=== PATIENT | male | born 1950 | race Caucasian/White ===

== ENCOUNTER 2019-04-30 12:37 | Inpatient (IN) | payer MEDICARE, OTHER, SELFPAY ==
[2019-04-30] VITALS (7 sets, daily range): BP systolic 83–104; BP diastolic 51–76; PULSE 66–82; RESP 12–16; TEMP 36.6–37.2; O2SAT 95–98; BMI 27.3
[2019-04-30 13:05] LABS: Add Manual Diff / Slide Review NO; Basophils Absolute Auto 0 /uL (0-100); Basophils Percent Auto 0.2 % (0-2); Eosinophils Absolute Auto 0 /uL (0-450); Eosinophils Percent Auto 0.2 % (2-4); Hematocrit 47.3 % (41-53); Hemoglobin 16.6 g/dL (13.5-17.5); Lymphocytes Absolute Auto 800 /uL (1100-4500); Lymphocytes Percent Auto 11.1 % (25-40); Mean Corpuscular HGB Conc 35.2 % (30-36); Mean Corpuscular Hemoglobin 31.9 PG (26-34); Mean Corpuscular Volume 90.7 fL (80-100); Monocytes Absolute Auto 900 /uL (0-900); Monocytes Percent Auto 12.1 % (3-14); Neutrophils Absolute Auto 5800 /uL (1500-7000); Neutrophils Percent Auto 76.4 % (50-75); Platelet Count 197 X10^3/uL (150-400); Red Blood Cell Count 5.21 X10^6/uL (4.5-5.9); Red Cell Distribution Width 12.5 % (11.6-14.8); White Blood Cell Count 7.5 X10^3/uL (4.5-11.0)
[2019-04-30 13:17] LABS: Alanine Aminotransferase 26 IU/L (21-72); Albumin Globulin Ratio 1.4 (1.0-2.8); Alkaline Phosphatase 59 U/L (38-126); Aspartate Aminotransferase 31 IU/L (17-59); BUN Creatinine Ratio 14.8 (6-22); Bilirubin Total 1.2 mg/dL (0.2-1.3); Blood Urea Nitrogen 43 mg/dL (9-20); Calcium 9.7 mg/dL (8.4-10.2); Carbon Dioxide 26 mmol/L (22-32); Chloride 96 mmol/L (98-107); Estimated Glomerular Filt Rate 21.6 mL/min (>60); Globulin 3.6 g/dL (1.7-4.1); Glucose 107 mg/dL (80-110); HEMOLYSIS < 15 (0-50); Lipase 141 U/L (23-300); Potassium 4.1 mmol/L (3.4-5.1); Sodium 139 mmol/L (137-145); Total Protein 8.6 g/dL (6.3-8.2)
[2019-04-30 13:27] LABS: RBC Urine None Seen (0-5/HPF)
[2019-04-30 13:35] LABS: Amorphous Sediment Urine 1+; Squamous Epithelial Cell Urine 1-5 /HPF (0-5/HPF); WBC Urine 1-5/HPF (0-5/HPF)
[2019-04-30 13:36] LABS: Bacteria Urine Few (2-10); Culture Indicated Urine Specimen Cultured; Granular Casts Urine 5-10/LPF; Hyaline Casts Urine 1-5/LPF; Mucus Urine 2+ (Negative)
[2019-04-30] MEDS: SODIUM CHLORIDE 0.9% 1,000 ML 500 ML IV (13:44)
[2019-04-30] MEDS: ONDANSETRON 4 MG/2 ML INJ IV ×2 (13:48→15:26)
[2019-04-30] MEDS: SODIUM CHLORIDE 0.9% 1,000 ML 1000 ML IV (14:42)
[2019-04-30 14:52] LABS: Adenovirus F 40/41 Not Detected (Not Detect); Astrovirus Not Detected (Not Detect); Campylobacter Detected (Not Detect); Clostridium difficile toxin AB Not Detected (Not Detect); Cryptosporidium Not Detected (Not Detect); Cyclospora cayetanensis Not Detected (Not Detect); Entamoeba histolytica Not Detected (Not Detect); Enteroaggregative E.coli Not Detected (Not Detect); Enteropathogenic E.coli Not Detected (Not Detect); Enterotoxigenic E.coli It/st Not Detected (Not Detect); Giardia lamblia Not Detected (Not Detect); Norovirus GI/GII Not Detected (Not Detect); Plesiomonsa shigelloides Not Detected (Not Detect); Rotavirus A Not Detected (Not Detect); Salmonella Not Detected (Not Detect); Shiga-like toxin-prod E.coli Not Detected (Not Detect); Shigella/Enteroinvasive E.coli Not Detected (Not Detect); Vibrio Not Detected (Not Detect); Vibrio cholerae Not Detected (Not Detect); Yersinia enterocolitica Not Detected (Not Detect)
[2019-04-30 14:55] LABS: Sapovirus Not Detected (Not Detect)
--- NOTE | 2019-04-30 14:55 | PC.NURSE ---
[facility] Camp [facility]. [facility]
[2019-04-30 15:49] LABS: BUN Creatinine Ratio 17.8 (6-22); Blood Urea Nitrogen 41 mg/dL (9-20); Calcium 8.2 mg/dL (8.4-10.2); Carbon Dioxide 24 mmol/L (22-32); Chloride 105 mmol/L (98-107); Estimated Glomerular Filt Rate 28.2 mL/min (>60); Glucose 92 mg/dL (80-110); HEMOLYSIS < 15 (0-50); Potassium 4.4 mmol/L (3.4-5.1); Sodium 137 mmol/L (137-145)
[2019-04-30] MEDS: AZITHROMYCIN 250 MG TABLET 500 MG PO (16:03)
--- NOTE | 2019-04-30 16:38 | ED_ITS ---
HPI - Nausea/Vomiting/Diarrhea <Nate MASOOD Nuñez - Last Filed: 04/30/19 23:01> General Chief complaint: Nausea/Vomiting/Diarrhea Stated complaint: diarrhea x4 days, abdominal pain Time Seen by Provider: 04/30/19 12:41 Source: patient Mode of arrival: Ambulatory Limitations: no limitations History of Present Illness HPI Narrative: This is a 69-year-old gentleman, nonsmoker, who presents to ED with diarrhea for last 3-4 days after he was returning from a cruise in [place]. Patient reports there is no blood in his stool but diarrhea is very watery. He reports stomach constant cramping discomfort in mid abdomen and left lower quadrant with nausea, indigestion and chills. Patient reports he has loose stool from 10-12 times in 24 hour period. He reports weakness and lightheadedn ess. Patient denies fever or recent antibiotic medication use. Patient reports many people on cruise ship with coughing. According to spouse she also had mild flu-like symptoms while she was on a cruise. Patient also has remote history of ulcerative colitis and use to have colonoscopy every 2 years but last time he was told his clear from colitis. He reports current pain is different from his previous colitis pain. Related Data Home Medications Medication Instructions Recorded Confirmed atorvastatin 20 mg tablet 20 mg PO QPM 90 Days tab 06/19/18 04/30/19 fluticasone propionate 50 1 spray NASAL DIRECTED 90 Days 06/19/18 04/30/19 mcg/actuation nasal gram spray,suspension hydrochlorothiazide 25 mg tablet 12.5 mg PO DAILY 90 Days tab 06/19/18 04/30/19 lisinopril 20 mg tablet 10 mg PO DAILY 90 Days tab 06/19/18 04/30/19 metoprolol tartrate 25 mg tablet 12.5 mg PO BID 90 Days tab 06/19/18 04/30/19 CoQ-10 1 cap PO DAILY 04/30/19 04/30/19 Fish Oil 1 cap PO DAILY 04/30/19 04/30/19 Probiotic 1 cap PO DAILY 04/30/19 04/30/19 apple cider vinegar 1 cap PO DAILY 04/30/19 04/30/19 celecoxib [Celebrex] 200 mg PO QPM 04/30/19 04/30/19 finasteride 5 mg PO DAILY 04/30/19 04/30/19 multivitamin 1 tab PO DAILY 04/30/19 04/30/19 red yeast rice 1 cap PO DAILY 04/30/19 04/30/19 turmeric 2 tab PO QPM 04/30/19 04/30/19 Previous Rx's Medication Instructions Recorded ondansetron HCl [Zofran] 4 mg PO Q6H PRN #20 tab 05/01/19 Allergies Allergy/AdvReac Type Severity Reaction Status Date / Time No Known Allergies Allergy Verified 04/30/19 21:34 Review of Systems <MASOOD Wilcox - Last Filed: 04/30/19 23:01> Review of Systems Narrative: General: See HPI HEENT: Denies sinus pain, ear pain, sore throat, difficulty swallowing, dizziness. Respiratory: Denies dyspnea, cough, wheezing, hemoptysis, sputum. Cardiovascular: Denies chest pain, palpitations, orthopnea, edema. Gastrointestinal: See HPI : Denies dysuria, frequency, incontinence, hematuria, urinary retention. Musculoskeletal: Denies weakness, joint pain or bony pain. Skin: Denies rash, skin lesions, or other. Neurologic: Reports lightheadedness. Denies weakness, headache, numbness, change in speech, confusion, seizures, incoordination. Psychiatric: No concerning psychosocial issues. 12-point review of systems is negative except for those stated above. Patient History <MASOOD Wilcox - Last Filed: 04/30/19 23:01> Medical History (Updated 04/30/19 @ 23:01 by MASOOD Shannon) BPH (benign prostatic hyperplasia) (Chronic) Cervical spondylosis (Chronic) Cervical stenosis of spinal canal (Chronic) Hyperlipidemia (Chronic) Hypertension (Chronic) PAF (paroxysmal atrial fibrillation) (Chronic ~2014) Ulcerative colitis (Chronic) Family History (Updated 04/30/19 @ 22:56 by MASOOD Shannon) Mother Hypertension Father ESRD (end stage renal disease) Social History household members: spouse Smoking Status: Never smoker alcohol intake: current Exam <MASOOD Wilcox - Last Filed: 04/30/19 23:01> Narrative Exam Narrative: GEN: Alert, oriented x 3, well appearing and nourished, and in no acute distress. Head: Normal cephalic, atraumatic. No scalp or temporal tenderness, palpable mass or rash. EYES: Pupils are equal, round, and reactive to light and accommodation. Ext raocular muscles are intact bilaterally. There is no subconjunctival hemorrhage, exudate and sclera non-icteric. ENT: Bilateral auditory canals and tympanic membranes clear. Hearing grossly intact. Nose without bleeding, purulent discharge or deviation. Facial sinuses nontender to palpate. Mucous membrane moist, no mucosal lesion. Throat without erythema, tonsillar hypertrophy or exudate. Uvula in midline, airway patent. Neck: Trachea in midline. No JVD, non-tender without lymphadenopathy. No masses or thyroid megaly. Supple, non-tender and no meningeal signs. CARDIAC: Normal regular rate and rhythm without murmurs, gallops, or rubs. No chest wall tenderness. No peripheral edema, cyanosis or pallor. Capillary refill is less than 2 seconds. RESPIRATORY: Lungs are clear to auscultate bilaterally. No cough, wheezes, rales, or rhonchi. No stridor, respiratory distress, increase work of breathing, or accessary muscle used. ABD: Abdomen soft, tender to palpate in left lower quadrant and mid abdomen and non-distended. No guarding or rebound tenderness to palpate. Bowel sounds are normal in all 4 quadrants. There is no palpable masses or organomegaly. EXT: Full painless ROM of all extremities with no loss of sensation, strength, effusion or edema. SKIN: Warm, dry, normal color for patient. No erythema, lesions or rash over visible areas. BACK: Nontender without deformity or crepitance. No flank tenderness. NEUROLOGICAL: Alert and oriented to place, time and person. Sensation and motor function intact bilaterally. No facial droops, dysphasia. PSYCHIATRIC: Good judgement and reason, without hallucinations, abnormal affect or abnormal behaviors during the examination. Patient is not suicidal. Initial Vital Signs Initial Vital Signs: Vital Signs Temperature 97.9 F 04/30/19 12:48 Pulse Rate 70 04/30/19 12:48 Respiratory Rate 12 04/30/19 12:48 Blood Pressure 97/60 04/30/19 12:48 <Dwight Kirk, - Last Filed: 05/03/19 07:03> Initial Vital Signs Initial Vital Signs: Vital Signs Temperature 97.9 F 04/30/19 12:48 Pulse Rate 70 04/30/19 12:48 Respiratory Rate 12 04/30/19 12:48 Blood Pressure 97/60 04/30/19 12:48 Course <Nate Ojeda-Kemal [employer] DIRECTOR - Last Filed: 04/30/19 23:01> Orders Ordered: Discontinued Medications Azithromycin (Zithromax) 500 mg PO NOW ONE Stop: 04/30/19 15:22 Last Admin: 04/30/19 16:03 Dose: 500 mg Documented by: JAZMYN Dicyclomine HCl (Bentyl) 20 mg PO NOW ONE Stop: 04/30/19 16:48 Last Admin: 04/30/19 16:55 Dose: 20 mg Documented by: PRATIBHA Dicyclomine HCl (Bentyl) 10 mg PO Q6HR PRN PRN Reason: Abdominal Distention Last Admin: 05/01/19 00:24 Dose: 10 mg Documented by: MILIYLE Sodium Chloride (Normal Saline 0.9%) 1,000 mls @ 500 mls/hr IV BOLUS ONE Stop: 04/30/19 14:53 Last Infusion: 04/30/19 14:42 Dose: 0 mls/hr Documented by: Admin: 04/30/19 13:44 Dose: 500 mls/hr Documented by: JAZMYN Sodium Chloride (Normal Saline 0.9%) 1,000 mls @ 1,000 mls/hr IV BOLUS ONE Stop: 04/30/19 15:28 Last Infusion: 04/30/19 15:17 Dose: 0 mls/hr Documented by: Admin: 04/30/19 14:42 Dose: 1,000 mls/hr Documented by: SANJIVUDSON Sodium Chloride (Normal Saline 0.9%) 1,000 mls @ 125 mls/hr IV CONT NEY Last Admin: 04/30/19 18:20 Dose: 125 mls/hr Documented by: DOMENICAAZQUE Sodium Chloride (Normal Saline 0.9%) 1,000 mls @ 125 mls/hr IV CONT NEY Last Admin: 05/01/19 10:58 Dose: 125 mls/hr Documented by: Infusion: 05/01/19 09:53 Dose: 125 mls/hr Documented by: Admin: 05/01/19 01:53 Dose: 125 mls/hr Documented by: CHRISTOPHER Lactobacillus Acidophilus (Bacid Caplet) 1 each PO BIDWM NEY Last Admin: 05/01/19 09:49 Dose: 1 each Documented by: CHERY Magnesium Oxide (Mag Ox) 400 mg PO NOW ONE Stop: 05/01/19 01:55 Last Admin: 05/01/19 02:52 Dose: 400 mg Documented by: CHRISTOPHER Ondansetron HCl (Zofran) 4 mg IV NOW ONE Stop: 04/30/19 12:55 Last Admin: 04/30/19 13:48 Dose: 4 mg Documented by: JAZMYN Ondansetron HCl (Zofran) 4 mg IV NOW ONE Stop: 04/30/19 15:22 Last Admin: 04/30/19 15:26 Dose: 4 mg Documented by: JAZMYN Ondansetron HCl (Zofran Odt) 4 mg SL Q8HR PRN PRN Reason: Nausea Last Admin: 05/01/19 09:49 Dose: 4 mg Documented by: Admin: 05/01/19 00:24 Dose: 4 mg Documented by: CHRISTOPHER Prochlorperazine (Compazine) 5 mg PO Q8H PRN PRN Reason: Nausea Vital Signs Vital signs: Vital Signs - 8 hr 04/30/19 17:00 Pulse Rate 78 Respiratory Rate 16 Blood Pressure [Left Arm] 104/76 <Dwight Kirk, DO - Last Filed: 05/03/19 07:03> Orders Ordered: Discontinued Medications Azithromycin (Zithromax) 500 mg PO NOW ONE Stop: 04/30/19 15:22 Last Admin: 04/30/19 16:03 Dose: 500 mg Documented by: JAZMYN Dicyclomine HCl (Bentyl) 20 mg PO NOW ONE Stop: 04/30/19 16:48 Last Admin: 04/30/19 16:55 Dose: 20 mg Documented by: PRATIBHA Dicyclomine HCl (Bentyl) 10 mg PO Q6HR PRN PRN Reason: Abdominal Distention Last Admin: 05/01/19 00:24 Dose: 10 mg Documented by: CHRISTOPHER Sodium Chloride (Normal Saline 0.9%) 1,000 mls @ 500 mls/hr IV BOLUS ONE Stop: 04/30/19 14:53 Last Infusion: 04/30/19 14:42 Dose: 0 mls/hr Documented by: Admin: 04/30/19 13:44 Dose: 500 mls/hr Documented by: JAZMYN Sodium Chloride (Normal Saline 0.9%) 1,000 mls @ 1,000 mls/hr IV BOLUS ONE Stop: 04/30/19 15:28 Last Infusion: 04/30/19 15:17 Dose: 0 mls/hr Documented by: Admin: 04/30/19 14:42 Dose: 1,000 mls/hr Documented by: JAZMYN Sodium Chloride (Normal Saline 0.9%) 1,000 mls @ 125 mls/hr IV CONT NEY Last Admin: 04/30/19 18:20 Dose: 125 mls/hr Documented by: DAVID Sodium Chloride (Normal Saline 0.9%) 1,000 mls @ 125 mls/hr IV CONT NEY Last Admin: 05/01/19 10:58 Dose: 125 mls/hr Documented by: Infusion: 05/01/19 09:53 Dose: 125 mls/hr Documented by: Admin: 05/01/19 01:53 Dose: 125 mls/hr Documented by: CHRISTOPHER Lactobacillus Acidophilus (Bacid Caplet) 1 each PO BIDWM NEY Last Admin: 05/01/19 09:49 Dose: 1 each Documented by: CHERY Magnesium Oxide (Mag Ox) 400 mg PO NOW ONE Stop: 05/01/19 01:55 Last Admin: 05/01/19 02:52 Dose: 400 mg Documented by: CHRISTOPHER Ondansetron HCl (Zofran) 4 mg IV NOW ONE Stop: 04/30/19 12:55 Last Admin: 04/30/19 13:48 Dose: 4 mg Documented by: JAZMYN Ondansetron HCl (Zofran) 4 mg IV NOW ONE Stop: 04/30/19 15:22 Last Admin: 04/30/19 15:26 Dose: 4 mg Documented by: JAZMYN Ondansetron HCl (Zofran Odt) 4 mg SL Q8HR PRN PRN Reason: Nausea Last Admin: 05/01/19 09:49 Dose: 4 mg Documented by: Admin: 05/01/19 00:24 Dose: 4 mg Documented by: CHRISTOPHER Prochlorperazine (Compazine) 5 mg PO Q8H PRN PRN Reason: Nausea Vital Signs Vital signs: Vital Signs - 8 hr 04/30/19 17:00 Pulse Rate 78 Respiratory Rate 16 Blood Pressure [Left Arm] 104/76 MDM - Nausea/Vomiting/Diarrhea <Nate MASOOD Nuñez - Last Filed: 04/30/19 23:01> Differential Diagnosis Differential diagnosis: Likely gastroenteritis and other (Infectious diarrhea, colitis, dehydration, hypokalemia) Medical Records Attestation: I reviewed the patient's medical records. Lab Data Attestation: I reviewed the patient's lab results. Result diagrams: 04/30/19 12:50 05/01/19 08:00 Labs: Lab Results 04/30/19 04/30/19 04/30/19 Range/Units 12:50 12:50 13:11 WBC 7.5 (4.5-11.0) X10^3/uL RBC 5.21 (4.5-5.9) X10^6/uL Hgb 16.6 (13.5-17.5) g/dL Hct 47.3 (41-53) % MCV 90.7 (80-100) fL MCH 31.9 (26-34) PG MCHC 35.2 (30-36) % RDW 12.5 (11.6-14.8) % Plt Count 197 (150-400) X10^3/uL Neut % (Auto) 76.4 H (50-75) % Lymph % (Auto) 11.1 L (25-40) % [place] % (Auto) 12.1 (3-14) % Eos % (Auto) 0.2 L (2-4) % Baso % (Auto) 0.2 (0-2) % Neut # (Auto) 5800 (9338-7033) /uL Lymph # (Auto) 800 L (9952-2703) /uL [place] # (Auto) 900 (0-900) /uL Eos # (Auto) 0 (0-450) /uL Baso # (Auto) 0 (0-100) /uL Sodium 139 (137-145) mmol/L Potassium 4.1 (3.4-5.1) mmol/L Chloride 96 L (98-107) mmol/L Carbon Dioxide 26 (22-32) mmol/L BUN 43 H (9-20) mg/dL Creatinine 2.90 H (0.66-1.25) mg/dL Estimated GFR 21.6 L (>60) mL/min BUN/Creatinine Ratio 14.8 (6-22) Glucose 107 (80-110) mg/dL Calcium 9.7 (8.4-10.2) mg/dL Total Bilirubin 1.2 (0.2-1.3) mg/dL AST 31 (17-59) IU/L ALT 26 (21-72) IU/L Alkaline Phosphatase 59 (38-126) U/L Total Protein 8.6 H (6.3-8.2) g/dL Albumin 5.0 (3.5-5.0) g/dL Globulin 3.6 (1.7-4.1) g/dL Albumin/Globulin Ratio 1.4 (1.0-2.8) Lipase 141 (23-300) U/L Urine RBC (0-5/HPF) Urine WBC (0-5/HPF) Ur Squamous Epith Cells (0-5/HPF) Amorphous Sediment Urine Bacteria (None) Hyaline Casts (None) Granular Casts (None) Urine Mucus (Negative) Ur Culture Indicated? Stl C. cayetanensis PCR Not detected (Not Detect) Stool Rotavirus (PCR) Not detected (Not Detect) Stool Adenovirus (PCR) Not detected (Not Detect) Stool Astrovirus (PCR) Not detected (Not Detect) Stool Cryptosporidium PCR Not detected (Not Detect) Stl E.coli Shiga Tox PCR Not detected (Not Detect) St Sh/Enteroin Ecoli PCR Not detected (Not Detect) Stool E coli O157 PCR Not Reportable Stl Enterotoxigenic E PCR Not detected (Not Detect) Stool EPEC (PCR) Not detected (Not Detect) Stl E. histolytica PCR Not detected (Not Detect) Stool Giardia Lamblia PCR Not detected (Not Detect) Stool Sapovirus (PCR) Not detected (Not Detect) Stl P. shigelloides PCR Not detected (Not Detect) St Y.enterocolitica PCR Not detected (Not Detect) Stool Vibrio (PCR) Not detected (Not Detect) Stl Vibrio cholerae PCR Not detected (Not Detect) Stl Enteroaggr Ecoli PCR Not detected (Not Detect) Stl Norovirus GI/GII PCR Not detected (Not Detect) Campylobacter (PCR) Detected H (Not Detect) C. difficile Tox (PCR) Not detected (Not Detect) Salmonella (PCR) Not detected (Not Detect) 04/30/19 04/30/19 Range/Units 13:20 15:22 WBC (4.5-11.0) X10^3/uL RBC (4.5-5.9) X10^6/uL Hgb (13.5-17.5) g/dL Hct (41-53) % MCV (80-100) fL MCH (26-34) PG MCHC (30-36) % RDW (11.6-14.8) % Plt Count (150-400) X10^3/uL Neut % (Auto) (50-75) % Lymph % (Auto) (25-40) % [place] % (Auto) (3-14) % Eos % (Auto) (2-4) % Baso % (Auto) (0-2) % Neut # (Auto) (5931-6760) /uL Lymph # (Auto) (5664-2223) /uL [place] # (Auto) (0-900) /uL Eos # (Auto) (0-450) /uL Baso # (Auto) (0-100) /uL Sodium 137 (137-145) mmol/L Potassium 4.4 (3.4-5.1) mmol/L Chloride 105 (98-107) mmol/L Carbon Dioxide 24 (22-32) mmol/L BUN 41 H (9-20) mg/dL Creatinine 2.30 H (0.66-1.25) mg/dL Estimated GFR 28.2 L (>60) mL/min BUN/Creatinine Ratio 17.8 (6-22) Glucose 92 (80-110) mg/dL Calcium 8.2 L (8.4-10.2) mg/dL Total Bilirubin (0.2-1.3) mg/dL AST (17-59) IU/L ALT (21-72) IU/L Alkaline Phosphatase (38-126) U/L Total Protein (6.3-8.2) g/dL Albumin (3.5-5.0) g/dL Globulin (1.7-4.1) g/dL Albumin/Globulin Ratio (1.0-2.8) Lipase (23-300) U/L Urine RBC None seen (0-5/HPF) Urine WBC 1-5/hpf (0-5/HPF) Ur Squamous Epith Cells 1-5 /hpf (0-5/HPF) Amorphous Sediment 1+ Urine Bacteria Few (2-10) H (None) Hyaline Casts 1-5/lpf (None) Granular Casts 5-10/lpf (None) Urine Mucus 2+ H (Negative) Ur Culture Indicated? Specimen cultured Stl C. cayetanensis PCR (Not Detect) Stool Rotavirus (PCR) (Not Detect) Stool Adenovirus (PCR) (Not Detect) Stool Astrovirus (PCR) (Not Detect) Stool Cryptosporidium PCR (Not Detect) Stl E.coli Shiga Tox PCR (Not Detect) St Sh/Enteroin Ecoli PCR (Not Detect) Stool E coli O157 PCR Stl Enterotoxigenic E PCR (Not Detect) Stool EPEC (PCR) (Not Detect) Stl E. histolytica PCR (Not Detect) Stool Giardia Lamblia PCR (Not Detect) Stool Sapovirus (PCR) (Not Detect) Stl P. shigelloides PCR (Not Detect) St Y.enterocolitica PCR (Not Detect) Stool Vibrio (PCR) (Not Detect) Stl Vibrio cholerae PCR (Not Detect) Stl Enteroaggr Ecoli PCR (Not Detect) Stl Norovirus GI/GII PCR (Not Detect) Campylobacter (PCR) (Not Detect) C. difficile Tox (PCR) (Not Detect) Salmonella (PCR) (Not Detect) Urine Dip Bedside Urine Glucose Negative Bedside Urine Bilirubin + 1 Bedside Urine Ketone +/- 5 Urine Specific [place] 1.030 Bedside Urine Occult Blood - Negative Bedside Urine pH 5.0 Bedside Urine Protein + 30 Bedside Urine Urobilinogen +/- 1mg Bedside Urine Nitrite - Negative Bedside Urine Leukocytes +/- 15 Esterase MDM Narrative Medical decision making narrative: 69-year-old gentleman who presents to ED with 3-4 days of multiple episodes of nonbloody, watery stool after he had returned from a cruise in [place] with constant low abdominal cramping pain, nausea and chills. Patient denies recent treatment with antibiotic medication. Patient states many people were cough and sniffles on a cruise ship and has nonproductive cough. Patient has history of ulcerative colitis which he can no longer has per last colonoscopy test and no further Q 2 year colonoscopy was suggested per his GI specialist. Patient had symptomatic hypotensive when he came in to ED with systolic blood pressure in mid 90s with normal heart rates, however patient currently takes metoprolol for AFib. Abdominal physical exam showed soft, nondistended, tender to palpate in mid and left side abdomen. Lung sounds were CTAB. Lab test shows unremarkable WBC. Kidney function test elev ated with creatinine level of 2.9 with GFR of 21.6 and BUN of 43. The patient had not report any kidney problems in the past. Given patient's history, this may due to patient's acute dehydration from multiple episodes of diarrhea. Patient was hydrated with 2 L of normal saline and Zofran and repeat kidney function test was obtained with somewhat improved creatinine as 2.3 and GFR of 28.2 with BUN of 41. Stool panel was positive for campylocater PCR. Patient was treated with azithromycin 500 mg p.o. and Bentyl for stomach discomfort. Patient was able to tolerate ice chips. Requested patient's medical record from primary care physician's office and patient's baseline kidney function in showed as creatinine of 0.99 with >60 GFR and normal BUN. It appears to be patient has acute kidney injury due to severe dehydration with pre-renal etiology and Dr Hopkins was contacted for the admission for gentle hydration and trending of his kidney function test. kindly accepted patient's care. Patient's urine test shows negative leuks and nitrites with 2-10 of urine bacteria and urine is being cultured at this time. Patient was not addressed for this and will wait for urine culture result to treat the patient. Findings were shared with patient and spouse and treatment plan was discussed and verbalized understanding. <Dwight Kirk, DO - Last Filed: 05/03/19 07:03> Lab Data Labs: Lab Results 04/30/19 04/30/19 04/30/19 Range/Units 12:50 12:50 13:11 WBC 7.5 (4.5-11.0) X10^3/uL RBC 5.21 (4.5-5.9) X10^6/uL Hgb 16.6 (13.5-17.5) g/dL Hct 47.3 (41-53) % MCV 90.7 (80-100) fL MCH 31.9 (26-34) PG MCHC 35.2 (30-36) % RDW 12.5 (11.6-14.8) % Plt Count 197 (150-400) X10^3/uL Neut % (Auto) 76.4 H (50-75) % Lymph % (Auto) 11.1 L (25-40) % [place] % (Auto) 12.1 (3-14) % Eos % (Auto) 0.2 L (2-4) % Baso % (Auto) 0.2 (0-2) % Neut # (Auto) 5800 (8676-0355) /uL Lymph # (Auto) 800 L (7581-7576) /uL [place] # (Auto) 900 (0-900) /uL Eos # (Auto) 0 (0-450) /uL Baso # (Auto) 0 (0-100) /uL Sodium 139 (137-145) mmol/L Potassium 4.1 (3.4-5.1) mmol/L Chloride 96 L (98-107) mmol/L Carbon Dioxide 26 (22-32) mmol/L BUN 43 H (9-20) mg/dL Creatinine 2.90 H (0.66-1.25) mg/dL Estimated GFR 21.6 L (>60) mL/min BUN/Creatinine Ratio 14.8 (6-22) Glucose 107 (80-110) mg/dL Calcium 9.7 (8.4-10.2) mg/dL Total Bilirubin 1.2 (0.2-1.3) mg/dL AST 31 (17-59) IU/L ALT 26 (21-72) IU/L Alkaline Phosphatase 59 (38-126) U/L Total Protein 8.6 H (6.3-8.2) g/dL Albumin 5.0 (3.5-5.0) g/dL Globulin 3.6 (1.7-4.1) g/dL Albumin/Globulin Ratio 1.4 (1.0-2.8) Lipase 141 (23-300) U/L Urine RBC (0-5/HPF) Urine WBC (0-5/HPF) Ur Squamous Epith Cells (0-5/HPF) Amorphous Sediment Urine Bacteria (None) Hyaline Casts (None) Granular Casts (None) Urine Mucus (Negative) Ur Culture Indicated? Stl C. cayetanensis PCR Not detected (Not Detect) Stool Rotavirus (PCR) Not detected (Not Detect) Stool Adenovirus (PCR) Not detected (Not Detect) Stool Astrovirus (PCR) Not detected (Not Detect) Stool Cryptosporidium PCR Not detected (Not Detect) Stl E.coli Shiga Tox PCR Not detected (Not Detect) St Sh/Enteroin Ecoli PCR Not detected (Not Detect) Stool E coli O157 PCR Not Reportable Stl Enterotoxigenic E PCR Not detected (Not Detect) Stool EPEC (PCR) Not detected (Not Detect) Stl E. histolytica PCR Not detected (Not Detect) Stool Giardia Lamblia PCR Not detected (Not Detect) Stool Sapovirus (PCR) Not detected (Not Detect) Stl P. shigelloides PCR Not detected (Not Detect) St Y.enterocolitica PCR Not detected (Not Detect) Stool Vibrio (PCR) Not detected (Not Detect) Stl Vibrio cholerae PCR Not detected (Not Detect) Stl Enteroaggr Ecoli PCR Not detected (Not Detect) Stl Norovirus GI/GII PCR Not detected (Not Detect) Campylobacter (PCR) Detected H (Not Detect) C. difficile Tox (PCR) Not detected (Not Detect) Salmonella (PCR) Not detected (Not Detect) 04/30/19 04/30/19 Range/Units 13:20 15:22 WBC (4.5-11.0) X10^3/uL RBC (4.5-5.9) X10^6/uL Hgb (13.5-17.5) g/dL Hct (41-53) % MCV (80-100) fL MCH (26-34) PG MCHC (30-36) % RDW (11.6-14.8) % Plt Count (150-400) X10^3/uL Neut % (Auto) (50-75) % Lymph % (Auto) (25-40) % [place] % (Auto) (3-14) % Eos % (Auto) (2-4) % Baso % (Auto) (0-2) % Neut # (Auto) (1627-5874) /uL Lymph # (Auto) (2525-5970) /uL [place] # (Auto) (0-900) /uL Eos # (Auto) (0-450) /uL Baso # (Auto) (0-100) /uL Sodium 137 (137-145) mmol/L Potassium 4.4 (3.4-5.1) mmol/L Chloride 105 (98-107) mmol/L Carbon Dioxide 24 (22-32) mmol/L BUN 41 H (9-20) mg/dL Creatinine 2.30 H (0.66-1.25) mg/dL Estimated GFR 28.2 L (>60) mL/min BUN/Creatinine Ratio 17.8 (6-22) Glucose 92 (80-110) mg/dL Calcium 8.2 L (8.4-10.2) mg/dL Total Bilirubin (0.2-1.3) mg/dL AST (17-59) IU/L ALT (21-72) IU/L Alkaline Phosphatase (38-126) U/L Total Protein (6.3-8.2) g/dL Albumin (3.5-5.0) g/dL Globulin (1.7-4.1) g/dL Albumin/Globulin Ratio (1.0-2.8) Lipase (23-300) U/L Urine RBC None seen (0-5/HPF) Urine WBC 1-5/hpf (0-5/HPF) Ur Squamous Epith Cells 1-5 /hpf (0-5/HPF) Amorphous Sediment 1+ Urine Bacteria Few (2-10) H (None) Hyaline Casts 1-5/lpf (None) Granular Casts 5-10/lpf (None) Urine Mucus 2+ H (Negative) Ur Culture Indicated? Specimen cultured Stl C. cayetanensis PCR (Not Detect) Stool Rotavirus (PCR) (Not Detect) Stool Adenovirus (PCR) (Not Detect) Stool Astrovirus (PCR) (Not Detect) Stool Cryptosporidium PCR (Not Detect) Stl E.coli Shiga Tox PCR (Not Detect) St Sh/Enteroin Ecoli PCR (Not Detect) Stool E coli O157 PCR Stl Enterotoxigenic E PCR (Not Detect) Stool EPEC (PCR) (Not Detect) Stl E. histolytica PCR (Not Detect) Stool Giardia Lamblia PCR (Not Detect) Stool Sapovirus (PCR) (Not Detect) Stl P. shigelloides PCR (Not Detect) St Y.enterocolitica PCR (Not Detect) Stool Vibrio (PCR) (Not Detect) Stl Vibrio cholerae PCR (Not Detect) Stl Enteroaggr Ecoli PCR (Not Detect) Stl Norovirus GI/GII PCR (Not Detect) Campylobacter (PCR) (Not Detect) C. difficile Tox (PCR) (Not Detect) Salmonella (PCR) (Not Detect) Urine Dip Bedside Urine Glucose Negative Bedside Urine Bilirubin + 1 Bedside Urine Ketone +/- 5 Urine Specific [place] 1.030 Bedside Urine Occult Blood - Negative Bedside Urine pH 5.0 Bedside Urine Protein + 30 Bedside Urine Urobilinogen +/- 1mg Bedside Urine Nitrite - Negative Bedside Urine Leukocytes +/- 15 Esterase Discharge Plan Departure Patient Disposition: Admitted As Inpatient Clinical Impression: Acute renal injury due to hypovolemia Discharge Date/Time: 04/30/19 18:02 Admit Date/Time: 04/30/19 17:47 Admit Provider: Lolis Hopkins <Dwight Kirk DO - Last Filed: 05/03/19 07:03> Sign Out Provider Sign Out Attestation: I was available for consultation during this patient's emergency department visit. This chart is signed by myself for administrative purposes only. I did not have direct contact with this patient during this visit. They were seen independently by the APC.
[2019-04-30] MEDS: DICYCLOMINE 10 MG CAPSULE 20 MG PO (16:55)
[2019-04-30] MEDS: SODIUM CHLORIDE 0.9% 1,000 ML 125 ML IV (18:20)
--- NOTE | 2019-04-30 20:38 | PM.HP.1 ---
History of Present Illness History of Present Illness Date Patient Seen: 04/30/19 Time Patient Seen: 20:39 Chief complaint: diarrhea x4 days, abdominal pain Narrative: The patient is a 69-year-old male with PMH HTN, PAF, HLD, BPH, ulcerative colitis, BPH, and cervical stenosis. Patient presented to the ED on 04/30/2019 out of concern for diarrhea and abdominal pain. Symptom onset was sudden, initially noted on 04/27/2019. Reports associated upper respiratory symptoms, malaise, dizziness with position change, and diminished appetite. Reports 10-14 episodes of watery diarrhea since onset of symptoms, denies rectal bleeding, melena, or hematochezia. Intermittent episodes of chills, but no fever. Denies joint pain, myalgia, and myopathy. Abdominal discomfort in the form of cramping and localized to lower quadrants of the abdomen. Patient recently returned from a cruise. Underlying history of ulcerative colitis. Patient follows up routinely and has colonoscopy every 2 years. Chronic disease has been stable. Current abdominal discomfort is different from discomfort experienced during an ulcerative colitis flare. Also has underlying history of paroxysmal atrial fibrillation. Not chronically anticoagulated. On metoprolol 12.5 mg b.i.d. for rate control. Known to be on HCTZ and lisinopril for BP control. Takes celecoxib for chronic neck pain. Denies additional use of NSAIDs. ED presentation & workup VS, 04/30 at 1751. T 97.9? F BP 97/60 mmHg HR 70 RR 12 SpO2 95% on RA Labs, 04/30 at WBC 7.5 HGB 16.6 HCT 47.3 PLT 197 Treatment/interventions received in ED - 500 ml NS bolus (1344) - ondansetron 4 mg IV (1348) - 1000 ml NS bolus (1442) - ondansetron 4 mg IV (1526) - azithromycin 500 mg PO (1603) - Dicyclomine 20 mg PO (1655) Patient History Medical History (Updated 04/30/19 @ 23:01 by MASOOD Shannon) BPH (benign prostatic hyperplasia) (Chronic) Cervical spondylosis (Chronic) Cervical stenosis of spinal canal (Chronic) Hyperlipidemia (Chronic) Hypertension (Chronic) PAF (paroxysmal atrial fibrillation) (Chronic ~2013) Ulcerative colitis (Chronic) Family & Social History Family History (Updated 04/30/19 @ 22:56 by MASOOD Shannon) Mother Hypertension Father ESRD (end stage renal disease) Social History: household members Spouse. . Prior Living Arrangements House Safety & Behavioral: Feels Safe in Current Yes Environment Been Physically Hurt or No Threatened By a Person Suicidal Ideation Description None Suicide Plan Description No Plan Tobacco & Substance use: Smoking Status Never smoker alcohol intake current alcohol intake frequency 0-2 drinks per day Substance Use Type does not use Meds Home Medications and Allergies Home Medications Medication Instructions Recorded Confirmed Type atorvastatin 20 mg tablet 20 mg PO QPM 90 Days tab 06/19/18 04/30/19 History fluticasone propionate 50 1 spray NASAL DIRECTED 90 Days 06/19/18 04/30/19 History mcg/actuation nasal gram spray,suspension hydrochlorothiazide 25 mg tablet 12.5 mg PO DAILY 90 Days tab 06/19/18 04/30/19 History lisinopril 20 mg tablet 10 mg PO DAILY 90 Days tab 06/19/18 04/30/19 History metoprolol tartrate 25 mg tablet 12.5 mg PO BID 90 Days tab 06/19/18 04/30/19 History CoQ-10 1 cap PO DAILY 04/30/19 04/30/19 History Fish Oil 1 cap PO DAILY 04/30/19 04/30/19 History Probiotic 1 cap PO DAILY 04/30/19 04/30/19 History apple cider vinegar 1 cap PO DAILY 04/30/19 04/30/19 History celecoxib [Celebrex] 200 mg PO QPM 04/30/19 04/30/19 History finasteride 5 mg PO DAILY 04/30/19 04/30/19 History multivitamin 1 tab PO DAILY 04/30/19 04/30/19 History red yeast rice 1 cap PO DAILY 04/30/19 04/30/19 History turmeric 2 tab PO QPM 04/30/19 04/30/19 History ondansetron HCl [Zofran] 4 mg PO Q6H PRN #20 tab 05/01/19 Rx Allergies Allergy/AdvReac Type Severity Reaction Status Date / Time No Known Allergies Allergy Verified 04/30/19 21:34 Review of Systems Review of Systems ROS Unobtainable: All systems reviewed & are unremarkable except as noted in HPI and below Exam Vital Signs (past 8 hours): - 04/30/19 12:48 04/30/19 13:30 04/30/19 14:00 Temperature 97.9 F Pulse Rate 70 71 66 Respiratory Rate 12 Blood Pressure 97/60 Blood Pressure [Left Arm] 83/51 L 95/65 Pulse Oximetry 95 98 04/30/19 17:00 04/30/19 17:51 04/30/19 18:00 Temperature 99 F Pulse Rate 78 80 77 Respiratory Rate 16 14 16 Blood Pressure 103/57 L Blood Pressure [Left Arm] 104/76 100/63 Pulse Oximetry 95 98 Oxygen Delivery Method Room Air Oxygen Flow Rate 0 Narrative Exam Narrative: Constitutional: NAD Neurologic: AOx3, no focal neurological deficits Head: NC, AT Eyes: PERRL, EOMI, Ears: external ears normal, no otorrhea Nose: external nose normal, no rhinorrhea or epistaxis Throat: MMM, oropharynx w/o exudate Neck: no masses, lymphadenopathy, or JVD Chest / Respiratory: equal chest rise, unlabored respiratory effort, no dyspnea or tachypnea at rest diminished breath sounds, no crackles or wheezing, on room air Heart / CV: S1S2, no murmur Abdomen / GI: round, moderately distended, soft, RLQ and LLQ tenderness on palpation (no guarding) : no suprapubic tenderness, no CVA Peripheral / Vascular: warm to touch, DP and PT pulses palpable, no edema Musc: full ROM of upper and lower extremities, adequate muscle tone and bulk Skin: no ecchymosis or suspicious lesions / ulcers Objective Labs Result Diagrams: 04/30/19 12:50 05/01/19 08:00 Labs: Laboratory Results - last 24 hr 04/30/19 04/30/19 04/30/19 12:50 12:50 13:11 WBC 7.5 RBC 5.21 Hgb 16.6 Hct 47.3 MCV 90.7 MCH 31.9 MCHC 35.2 RDW 12.5 Plt Count 197 Neut % (Auto) 76.4 H Lymph % (Auto) 11.1 L [place] % (Auto) 12.1 Eos % (Auto) 0.2 L Baso % (Auto) 0.2 Neut # (Auto) 5800 Lymph # (Auto) 800 L [place] # (Auto) 900 Eos # (Auto) 0 Baso # (Auto) 0 Sodium 139 Potassium 4.1 Chloride 96 L Carbon Dioxide 26 BUN 43 H Creatinine 2.90 H Estimated GFR 21.6 L BUN/Creatinine Ratio 14.8 Glucose 107 Calcium 9.7 Total Bilirubin 1.2 AST 31 ALT 26 Alkaline Phosphatase 59 Total Protein 8.6 H Albumin 5.0 Globulin 3.6 Albumin/Globulin Ratio 1.4 Lipase 141 Urine RBC Urine WBC Ur Squamous Epith Cells Amorphous Sediment Urine Bacteria Hyaline Casts Granular Casts Urine Mucus Ur Culture Indicated? Stl C. cayetanensis PCR Not detected Stool Rotavirus (PCR) Not detected Stool Adenovirus (PCR) Not detected Stool Astrovirus (PCR) Not detected Stool Cryptosporidium PCR Not detected Stl E.coli Shiga Tox PCR Not detected St Sh/Enteroin Ecoli PCR Not detected Stool E coli O157 PCR Not Reportable Stl Enterotoxigenic E PCR Not detected Stool EPEC (PCR) Not detected Stl E. histolytica PCR Not detected Stool Giardia Lamblia PCR Not detected Stool Sapovirus (PCR) Not detected Stl P. shigelloides PCR Not detected St Y.enterocolitica PCR Not detected Stool Vibrio (PCR) Not detected Stl Vibrio cholerae PCR Not detected Stl Enteroaggr Ecoli PCR Not detected Stl Norovirus GI/GII PCR Not detected Campylobacter (PCR) Detected H C. difficile Tox (PCR) Not detected Salmonella (PCR) Not detected 04/30/19 04/30/19 13:20 15:22 WBC RBC Hgb Hct MCV MCH MCHC RDW Plt Count Neut % (Auto) Lymph % (Auto) [place] % (Auto) Eos % (Auto) Baso % (Auto) Neut # (Auto) Lymph # (Auto) [place] # (Auto) Eos # (Auto) Baso # (Auto) Sodium 137 Potassium 4.4 Chloride 105 Carbon Dioxide 24 BUN 41 H Creatinine 2.30 H Estimated GFR 28.2 L BUN/Creatinine Ratio 17.8 Glucose 92 Calcium 8.2 L Total Bilirubin AST ALT Alkaline Phosphatase Total Protein Albumin Globulin Albumin/Globulin Ratio Lipase Urine RBC None seen Urine WBC 1-5/hpf Ur Squamous Epith Cells 1-5 /hpf Amorphous Sediment 1+ Urine Bacteria Few (2-10) H Hyaline Casts 1-5/lpf Granular Casts 5-10/lpf Urine Mucus 2+ H Ur Culture Indicated? Specimen cultured Stl C. cayetanensis PCR Stool Rotavirus (PCR) Stool Adenovirus (PCR) Stool Astrovirus (PCR) Stool Cryptosporidium PCR Stl E.coli Shiga Tox PCR St Sh/Enteroin Ecoli PCR Stool E coli O157 PCR Stl Enterotoxigenic E PCR Stool EPEC (PCR) Stl E. histolytica PCR Stool Giardia Lamblia PCR Stool Sapovirus (PCR) Stl P. shigelloides PCR St Y.enterocolitica PCR Stool Vibrio (PCR) Stl Vibrio cholerae PCR Stl Enteroaggr Ecoli PCR Stl Norovirus GI/GII PCR Campylobacter (PCR) C. difficile Tox (PCR) Salmonella (PCR) Assessment & Plan Assessment & Plan narrative: Patient is being admitted under observation status. Campylobacter gastrointestinal tract infection, acute, present on admission, active - Campylobacter antigen positive on GI panel - No fever or bloody stools - Typically this type of infection is self-limited. Supportive care, at this time antimicrobial therapy is not needed or recommended. - Rehydration w/ IVF, NS @ 125 ml/hr - Monitor and correct electrolyte deficiencies - Clear liquid diet, re-evaluate in am, may advance if GI symptoms improving - Probiotic 1 tab po BID, may help to reduce severity and duration of symptoms - Bentyl 10 mg Q6H prn for abdominal cramping, IBS symptoms - Monitor for severe disease (RF: age) and potential complications of reactive arthritis and GBS - Follow-up tests are not needed once diarrhea has resolved. Patient's may experience pursue symptoms of IBS post resolution of an infection, if this occurs it is not considered an abnormal sequela. - Placed in contact isolation Acute kidney injury, present on admission, active - sCr 2.9 on presentation, improving with hydration (repeat sCr 2.3) - baseline renal function is not known - continue IV fluids - hold nephrotoxin agents (specifically will hold INSTRUMENT LENS GRINDER meds, HCTZ, lisinopril, and celecoxib) Nausea and diarrhea - Anti-emetics, zofran odt 4 mg Q8H prn and compazine 5 mg PO Q8H prn Upper respiratory symptoms, acute, present on admission, active - Check respiratory viral panel Paroxysmal atrial fibrillation, chronic condition, present on admission, stable - EKG, Tele monitoring - Not on chronic anticoagulation - INSTRUMENT LENS GRINDER on metoprolol tartrate 12.5 mg b.i.d. for rate control; hold BB tonight, in lieu of hypotension, re-evaluate in am, will monitor patients cardiac status closely - BMP, Mg at midnight, given frequent diarrhea - Monitor and replete electrolytes accordingly Hyperlipidemia, chronic condition, present on admission, stable -INSTRUMENT LENS GRINDER on a statin and fish oil, hold with acute malaise, mayalgia, and GI pathology. Resume with symptom resolution. Cervical pain, chronic condition, present on admission, stable - INSTRUMENT LENS GRINDER on celecoxib, will hold in lieu of MARY Full code. Designates spouse as a surrogate decision maker. VTE prophylaxis with SCDs. Home medications reviewed and reconciled accordingly
[2019-05-01] VITALS: BP 104/61; PULSE 84; RESP 18; TEMP 36.8; O2SAT 96
[2019-05-01] MEDS: ONDANSETRON 4 MG ODT SL ×2 (00:24→09:49)
[2019-05-01] MEDS: DICYCLOMINE 10 MG CAPSULE PO (00:24)
[2019-05-01 00:57] LABS: Blood Urea Nitrogen 32 mg/dL (9-20); Calcium 8.7 mg/dL (8.4-10.2); Carbon Dioxide 25 mmol/L (22-32); Chloride 105 mmol/L (98-107); Estimated Glomerular Filt Rate 42.8 mL/min (>60); Glucose 87 mg/dL (80-110); HEMOLYSIS < 15 (0-50); Magnesium 1.8 mg/dL (1.6-2.3); Sodium 138 mmol/L (137-145)
[2019-05-01] MEDS: SODIUM CHLORIDE 0.9% 1,000 ML 125 ML IV ×2 (01:53→10:58)
[2019-05-01 02:02] LABS: Adenovirus Not Detected (Not Detect); Coronavirus 229E Not Detected (Not Detect); Coronavirus HKU1 Not Detected (Not Detect); Coronavirus NL 63 Not Detected (Not Detect)
[2019-05-01 02:03] LABS: Bordetella pertussis Not Detected (Not Detect); Chlamydophila pneumoniae Not Detected (Not Detect); Coronavirus OC43 Not Detected (Not Detect); Human Metapneumovirus Not Detected (Not Detect); Human Rhinovirus/Enterovirus Not Detected (Not Detect); Influenza A Not Detected (Not Detect); Influenza B Not Detected (Not Detect); Mycoplasma pneumoniae Not Detected (Not Detect); Parainfluenza Virus 1 Not Detected (Not Detect); Parainfluenza Virus 2 Not Detected (Not Detect); Parainfluenza Virus 3 Not Detected (Not Detect); Parainfluenza Virus 4 Not Detected (Not Detect); Respiratory Syncytial Virus Not Detected (Not Detect)
[2019-05-01] MEDS: MAGNESIUM OXIDE 400 MG TABLET PO (02:52)
[2019-05-01 05:33] VITALS: BP 109/62; PULSE 82; RESP 16; TEMP 36.7; O2SAT 93
[2019-05-01 08:03] VITALS: BP 102/57; PULSE 80; RESP 18; TEMP 36.9; O2SAT 94
[2019-05-01 09:13] LABS: Blood Urea Nitrogen 26 mg/dL (9-20); Calcium 8.7 mg/dL (8.4-10.2); Carbon Dioxide 24 mmol/L (22-32); Chloride 106 mmol/L (98-107); Estimated Glomerular Filt Rate 54.4 mL/min (>60); Glucose 90 mg/dL (80-110); HEMOLYSIS < 15 (0-50); Magnesium 1.9 mg/dL (1.6-2.3); Potassium 3.7 mmol/L (3.4-5.1); Sodium 139 mmol/L (137-145)
--- NOTE | 2019-05-01 09:19 | CM.DANOTE ---
DCP: Case received, EMR reviewed and met with patient. Introduced self and role. Was able to meet with patient to obtain baseline health and activity information. DCP assessment/template completed with information currently available. Patient is a 69 year old male who admitted yesterday afternoon to the care of the hospitalist team. PCP: Dr. Whitfield. Payer: confirmed: Medicare. Patient came to the hospital via family vehicle secondary to loose stools. Patient had been on a cruise in [place] recently. Patient has history of colitis. Met with patient in his room. Alert and oriented, independent, and resides with his , Betty, in [place]. Patient is retired. P: DCP to continue to follow. He should be able to go home when he is medically stable. Lisa Goff RN/[employer]
[2019-05-01] MEDS: LACTOBACILLUS ACIDOPHILUS TABLET 1 EACH PO (09:49)
[2019-05-01 11:40] VITALS: BP 113/67; PULSE 77; RESP 16; TEMP 37.1; O2SAT 95
--- NOTE | 2019-05-01 12:31 | P.DS_ITS ---
History of Present Illness History of Present Illness Date Patient Seen: 04/30/19 Chief complaint: diarrhea x4 days, abdominal pain Narrative: Written by Ino CORREIA: The patient is a 69-year-old male with PMH HTN, PAF, HLD, BPH, ulcerative colitis, BPH, and cervical stenosis. Patient presented to the ED on 04/30/2019 out of concern for diarrhea and abdominal pain. Symptom onset was sudden, initially noted on 04/27/2019. Reports associated upper respiratory symptoms, malaise, dizziness with position change, and diminished appetite. Reports 10-14 episodes of watery diarrhea since onset of symptoms, denies rectal bleeding, melena, or hematochezia. Intermittent episodes of chills, but no fever. Denies joint pain, myalgia, and myopathy. Abdominal discomfort in the form of cramping and localized to lower quadrants of the abdomen. Patient recently returned from a cruise. Underlying history of ulcerative colitis. Patient follows up routinely and has colonoscopy every 2 years. Chronic disease has been stable. Current abdominal discomfort is different from discomfort experienced during an ulcerative colitis flare. Also has underlying history of paroxysmal atrial fibrillation. Not chronically anticoagulated. On metoprolol 12.5 mg b.i.d. for rate control. Known to be on HCTZ and lisinopril for BP control. Takes celecoxib for chronic neck pain. Denies additional use of NSAIDs. ED presentation & workup VS, 04/30 at 1751. T 97.9? F BP 97/60 mmHg HR 70 RR 12 SpO2 95% on RA Labs, 04/30 at WBC 7.5 HGB 16.6 HCT 47.3 PLT 197 Treatment/interventions received in ED - 500 ml NS bolus (1344) - ondansetron 4 mg IV (1348) - 1000 ml NS bolus (1442) - ondansetron 4 mg IV (1526) - azithromycin 500 mg PO (1603) - Dicyclomine 20 mg PO (1655) Discharge Providers Provider Date of admission: 04/30/19 17:47 Discharge Date: 05/01/19 Primary care physician: Sofy Whitfield MD Discharge provider: Loils Hopkins DO Summary Hospital Course Discharge Diagnosis: 1. Acute campylobacter gastrointestinal tract infection, present on admission. Resolving. 2. Acute kidney injury, present on admission. Resolving. 3. Upper respiratory symptoms, acute, present on admission. Resolving. 4. Paroxysmal atrial fibrillation, chronic, present on admission. Stable. 5. Hyperlipidemia, chronic, present on admission. Stable. 6. Cervical osteoarthritis with pain, chronic, present on admission. Stable. 7. History of ulcerative colitis consider in remission. Hospital Course: Cam Navarro is a 69-year-old male with past medical history significant for hypertension, hyperlipidemia, paroxysmal atrial fibrillation, BPH, ulcerative c olitis, and cervical stenosis who presented to the ED for diarrhea and abdominal pain. 1. Acute campylobacter gastrointestinal tract infection, present on admission. Resolving. -Patient presented with diarrhea with 10-12 BM's per day and abdominal cramping. -GI PCR positive for Campylobacter. -No fever or bloody stools. Patient with history of UC in remission. -Continued IV fluids until adequately hydrated then discontinued. -Continued to monitor and correct electrolyte deficiencies as needed. -Continued clear liquid diet and advanced as tolerated. -Continued contact isolation precautions. -Continued suppotive treatment with anti-emetics, zofran odt 4 mg every 8 hours and compazine 5 mg every 8 hours as needed for nausea, probiotic 1 tab twice daily may help to reduce severity and duration of symptoms, and bentyl 10 mg every 6 hours as needed for abdominal cramping/IBS symptoms. -Typically this type of infection is self-limited. Supportive care, at this time antimicrobial therapy is not needed or recommended. Monitored for severe disease (RF: age) and potential complications of reactive arthritis and GBS in leui of UC. Follow-up tests are not needed once diarrhea has resolved. Patient's may experience pursue symptoms of IBS post resolution of an infection, if this occurs it is not considered an abnormal sequela.Patient improved more quickly then anticipated and was eager to discharge despite persistent diarrhea although less voluminous still frequent. Patient discharged home with strict precautions to return if worsening. 2. Acute kidney injury, present on admission. Resolving. -Baseline renal function/creatinine unknown. Initial creatinine 2.9. Trended down to 1.3. -Continued IV fluids until adequately hydrated then discontinued. -Avoided and held nephrotoxic agents specifically: HCTZ, lisinopril, and celecoxib. -Continued to monitor renal function daily. Recommend repeat BMP and Mg at outptatient follow-up with PCP. 3. Upper respiratory symptoms, acute, present on admission. Resolving. -Likely acute viral URI resolving as patient's symptoms started several weeks ago. -Chest x-ray not performed as clincal exam lungs clear bilaterally in all lung martinez. -Respiratory viral PCR negative. 4. Paroxysmal atrial fibrillation, chronic, present on admission. Stable. -Not on chronic anticoagulation. -Patient on metoprolol tartrate 12.5 mg twice daily for rate control; Held initially in lieu of hypotension from dehydration. -Continued to monitor and replete electrolytes as needed. Goal K > 4.0 and Mg > 2.0. 5. Hyperlipidemia, chronic, present on admission. Stable. -Patient on atorvastatin 20 mg daily at bedtime and fish oil. Held initially due to malaise, mayalgia, and GI pathology. May resume at time of discharge. 6. Cervical osteoarthritis with pain, chronic, present on admission. Stable. -Held celecoxibin lieu of MARY. May resume at time of discharge. 7. History of ulcerative colitis consider in remission. -Patient is periodically monitored every 2 years with colonoscopy. Not on medical treatment as he is disease free. Exam Vital Signs (past 8 hours): - 05/01/19 05:33 05/01/19 08:03 05/01/19 11:40 Temperature 98.0 F 98.4 F 98.8 F Pulse Rate 82 80 77 Respiratory Rate 16 18 16 Blood Pressure 109/62 102/57 L 113/67 Pulse Oximetry 93 94 95 Oxygen Delivery Method Room Air Oxygen Flow Rate 0 Narrative Exam Narrative: General: Older gentleman is standing in room and in no acute distress, well- developed, well-nourished, appropriately interactive HEENT: Normocephalic, atraumatic. External ears without defect. Pupils equal, round, and reactive to light. Anicteric sclerae, moist conjunctivae, and no lid lag. Neck: Supple with full range of motion. No lymphadenopathy or thyromegaly. Cardiovascular: Regular rate and rhythm without murmurs, rubs, or gallops appreciated Pulmonary: Clear to auscultation bilaterally without crackles, wheezes, or rhonchi. Normal respiratory effort with no use of accessory muscles. Abdomen: Soft, bowel sounds present, tenderness to palpation improved, nondistended. No hepatosplenomegaly or masses appreciated. Extremities: No clubbing, cyanosis, or edema. Skin: Normal temperature, turgor, and texture; no rash, ulcers, or subcutaneous nodules appreciated. Neurological: Cranial nerves grossly intact. Psychiatric: Normal mood and affect. Alert and oriented to person, place, and time. Objective Labs Result Diagrams: 04/30/19 12:50 05/01/19 08:00 Labs: Laboratory Results - last 24 hr 04/30/19 04/30/19 04/30/19 12:50 12:50 13:11 WBC 7.5 RBC 5.21 Hgb 16.6 Hct 47.3 MCV 90.7 MCH 31.9 MCHC 35.2 RDW 12.5 Plt Count 197 Neut % (Auto) 76.4 H Lymph % (Auto) 11.1 L [place] % (Auto) 12.1 Eos % (Auto) 0.2 L Baso % (Auto) 0.2 Neut # (Auto) 5800 Lymph # (Auto) 800 L [place] # (Auto) 900 Eos # (Auto) 0 Baso # (Auto) 0 Sodium 139 Potassium 4.1 Chloride 96 L Carbon Dioxide 26 BUN 43 H Creatinine 2.90 H Estimated GFR 21.6 L BUN/Creatinine Ratio 14.8 Glucose 107 Calcium 9.7 Magnesium Total Bilirubin 1.2 AST 31 ALT 26 Alkaline Phosphatase 59 Total Protein 8.6 H Albumin 5.0 Globulin 3.6 Albumin/Globulin Ratio 1.4 Lipase 141 Urine RBC Urine WBC Ur Squamous Epith Cells Amorphous Sediment Urine Bacteria Hyaline Casts Granular Casts Urine Mucus Ur Culture Indicated? Stl C. cayetanensis PCR Not detected Stool Rotavirus (PCR) Not detected Stool Adenovirus (PCR) Not detected Stool Astrovirus (PCR) Not detected Stool Cryptosporidium PCR Not detected Stl E.coli Shiga Tox PCR Not detected St Sh/Enteroin Ecoli PCR Not detected Stool E coli O157 PCR Not Reportable Stl Enterotoxigenic E PCR Not detected Stool EPEC (PCR) Not detected Stl E. histolytica PCR Not detected Stool Giardia Lamblia PCR Not detected Stool Sapovirus (PCR) Not detected Stl P. shigelloides PCR Not detected St Y.enterocolitica PCR Not detected Stool Vibrio (PCR) Not detected Stl Vibrio cholerae PCR Not detected Stl Enteroaggr Ecoli PCR Not detected Stl Norovirus GI/GII PCR Not detected Chlamy pneumoniae PCR Adenovirus (PCR) B.parapertussis DNA PCR Campylobacter (PCR) Detected H C. difficile Tox (PCR) Not detected Coronavirus OC43 (PCR) Coronavirus HKU1 (PCR) Coronavirus 229E (PCR) Coronavirus NL63 (PCR) Human Metapneumovir PCR Influenza Type A (PCR) Influenza Type B (PCR) M. pneumoniae (PCR) Parainfluenza 1 (PCR) Parainfluenza 2 (PCR) Parainfluenza 3 (PCR) Parainfluenza 4 (PCR) RSV (PCR) Entero/Rhino (PCR) Salmonella (PCR) Not detected 04/30/19 04/30/19 05/01/19 13:20 15:22 00:40 WBC RBC Hgb Hct MCV MCH MCHC RDW Plt Count Neut % (Auto) Lymph % (Auto) [place] % (Auto) Eos % (Auto) Baso % (Auto) Neut # (Auto) Lymph # (Auto) [place] # (Auto) Eos # (Auto) Baso # (Auto) Sodium 137 Potassium 4.4 Chloride 105 Carbon Dioxide 24 BUN 41 H Creatinine 2.30 H Estimated GFR 28.2 L BUN/Creatinine Ratio 17.8 Glucose 92 Calcium 8.2 L Magnesium Total Bilirubin AST ALT Alkaline Phosphatase Total Protein Albumin Globulin Albumin/Globulin Ratio Lipase Urine RBC None seen Urine WBC 1-5/hpf Ur Squamous Epith Cells 1-5 /hpf Amorphous Sediment 1+ Urine Bacteria Few (2-10) H Hyaline Casts 1-5/lpf Granular Casts 5-10/lpf Urine Mucus 2+ H Ur Culture Indicated? Specimen cultured Stl C. cayetanensis PCR Stool Rotavirus (PCR) Stool Adenovirus (PCR) Stool Astrovirus (PCR) Stool Cryptosporidium PCR Stl E.coli Shiga Tox PCR St Sh/Enteroin Ecoli PCR Stool E coli O157 PCR Stl Enterotoxigenic E PCR Stool EPEC (PCR) Stl E. histolytica PCR Stool Giardia Lamblia PCR Stool Sapovirus (PCR) Stl P. shigelloides PCR St Y.enterocolitica PCR Stool Vibrio (PCR) Stl Vibrio cholerae PCR Stl Enteroaggr Ecoli PCR Stl Norovirus GI/GII PCR Chlamy pneumoniae PCR Not detected Adenovirus (PCR) Not detected B.parapertussis DNA PCR Not detected Campylobacter (PCR) C. difficile Tox (PCR) Coronavirus OC43 (PCR) Not detected Coronavirus HKU1 (PCR) Not detected Coronavirus 229E (PCR) Not detected Coronavirus NL63 (PCR) Not detected Human Metapneumovir PCR Not detected Influenza Type A (PCR) Not detected Influenza Type B (PCR) Not detected M. pneumoniae (PCR) Not detected Parainfluenza 1 (PCR) Not detected Parainfluenza 2 (PCR) Not detected Parainfluenza 3 (PCR) Not detected Parainfluenza 4 (PCR) Not detected RSV (PCR) Not detected Entero/Rhino (PCR) Not detected Salmonella (PCR) 05/01/19 05/01/19 00:40 08:00 WBC RBC Hgb Hct MCV MCH MCHC RDW Plt Count Neut % (Auto) Lymph % (Auto) [place] % (Auto) Eos % (Auto) Baso % (Auto) Neut # (Auto) Lymph # (Auto) [place] # (Auto) Eos # (Auto) Baso # (Auto) Sodium 138 139 Potassium 4.0 3.7 Chloride 105 106 Carbon Dioxide 25 24 BUN 32 H 26 H Creatinine 1.60 H 1.30 H Estimated GFR 42.8 L 54.4 L BUN/Creatinine Ratio 20.0 20.0 Glucose 87 90 Calcium 8.7 8.7 Magnesium 1.8 1.9 Total Bilirubin AST ALT Alkaline Phosphatase Total Protein Albumin Globulin Albumin/Globulin Ratio Lipase Urine RBC Urine WBC Ur Squamous Epith Cells Amorphous Sediment Urine Bacteria Hyaline Casts Granular Casts Urine Mucus Ur Culture Indicated? Stl C. cayetanensis PCR Stool Rotavirus (PCR) Stool Adenovirus (PCR) Stool Astrovirus (PCR) Stool Cryptosporidium PCR Stl E.coli Shiga Tox PCR St Sh/Enteroin Ecoli PCR Stool E coli O157 PCR Stl Enterotoxigenic E PCR Stool EPEC (PCR) Stl E. histolytica PCR Stool Giardia Lamblia PCR Stool Sapovirus (PCR) Stl P. shigelloides PCR St Y.enterocolitica PCR Stool Vibrio (PCR) Stl Vibrio cholerae PCR Stl Enteroaggr Ecoli PCR Stl Norovirus GI/GII PCR Chlamy pneumoniae PCR Adenovirus (PCR) B.parapertussis DNA PCR Campylobacter (PCR) C. difficile Tox (PCR) Coronavirus OC43 (PCR) Coronavirus HKU1 (PCR) Coronavirus 229E (PCR) Coronavirus NL63 (PCR) Human Metapneumovir PCR Influenza Type A (PCR) Influenza Type B (PCR) M. pneumoniae (PCR) Parainfluenza 1 (PCR) Parainfluenza 2 (PCR) Parainfluenza 3 (PCR) Parainfluenza 4 (PCR) RSV (PCR) Entero/Rhino (PCR) Salmonella (PCR) Discharge Plan Discharge Plan Patient Disposition: Home Discharge comment: You're being discharged home. You have infectious diarrhea with campylobacter for which treatment unless severe is supportive. You have been prescribed Zofran every 6 hours as needed for nausea. Please try to stay well hydrated and get plenty of rest. Your diarrhea should lessen in frequency and amount and slowly return to normal bowel consistency and frequency. Discharge Med Rec/Prescriptions Prescriptions: New ondansetron HCl [Zofran] 4 mg tablet 4 mg PO Q6H PRN (Reason: nausea and vomiting) Qty: 20 RF: 0 Continued finasteride 5 mg tablet 5 mg PO DAILY RF: 0 multivitamin Tablet 1 tab PO DAILY RF: 0 CoQ-10 1 cap PO DAILY RF: 0 Fish Oil 1 cap PO DAILY RF: 0 Probiotic 1 cap PO DAILY RF: 0 apple cider vinegar 1 cap PO DAILY RF: 0 red yeast rice 1 cap PO DAILY RF: 0 turmeric 2 tab PO QPM RF: 0 celecoxib [Celebrex] 200 mg capsule 200 mg PO QPM RF: 0 atorvastatin 20 mg tablet 20 mg PO QPM 90 Days RF: 0 lisinopril 20 mg tablet 10 mg PO DAILY 90 Days RF: 0 hydrochlorothiazide 25 mg tablet 12.5 mg PO DAILY 90 Days RF: 0 fluticasone propionate 50 mcg/actuation spray,suspension 1 spray NASAL DIRECTED 90 Days RF: 0 metoprolol tartrate 25 mg tablet 12.5 mg PO BID 90 Days RF: 0 Follow up/Referrals: Sofy Whitfield MD [Primary Care Provider] - 3-5 Days (Please call to schedule your appt.) Provider Discharge Instructions Diet: Diet as Tolerated Activity: Activity as tolerated Visit Report/Discharge Packet Instructions: DI for Dehydration -- Adult, DI for Diarrhea and Traveler's Diarrhea -- Adult Discharge Data Primary Care Provider: Sofy Whitfield Discharges patient from system. Discharge Date/Time: 05/01/19 13:55
--- NOTE | 2019-05-01 14:05 | PC.NURSE ---
Discharge Pt denies pain, states minimal cramping and some nausea. gave pt zofran and this helped his nausea. d/c instructions provided to pt. aware to contact PCP with any additional questions as well as to have f/u apt and labs rechecked. pt states he took all belongings with him. PIV and tele removed prior to d/c. left in w/c with [facility].
== END 2019-05-01 13:55 | disposition home or self-care (01) | DRG 372 ==
LOC: ED 17:24 → AC 17:48
PROVIDERS: Nurse Practitioner Gerontology; Admitting Provider Internal Medicine; Emergency Provider Nurse Practitioner Family; PCP Family Medicine; Visit Provider Internal Medicine
DX: A04.5 Campylobacter enteritis (principal); N17.9 Acute kidney failure, unspecified; I48.0 Paroxysmal atrial fibrillation; I10 Essential (primary) hypertension; E78.5 Hyperlipidemia, unspecified; N40.0 Benign prostatic hyperplasia without lower urinary tract symptoms; G89.29 Other chronic pain
CPT/HCPCS: 36415; 80048; 80053; 81003; 81015; 83690; 83735; 85025; 87086; 87507; 87633; 96361; 96374; 96376; 99284; J2405

== ENCOUNTER → 2019-05-07 18:21 | Outpatient (ROUT) | payer MEDICARE, OTHER, SELFPAY ==
[2019-04-30 18:27] VITALS: BMI 27.3
[2019-05-07 18:40] LABS: Add Manual Diff / Slide Review NO; Basophils Absolute Auto 100 /uL (0-100); Basophils Percent Auto 0.6 % (0-2); Eosinophils Absolute Auto 100 /uL (0-450); Eosinophils Percent Auto 1.1 % (2-4); Hematocrit 42.1 % (41-53); Hemoglobin 14.6 g/dL (13.5-17.5); Lymphocytes Absolute Auto 1900 /uL (1100-4500); Lymphocytes Percent Auto 21.5 % (25-40); Mean Corpuscular HGB Conc 34.7 % (30-36); Mean Corpuscular Hemoglobin 31.2 PG (26-34); Mean Corpuscular Volume 89.9 fL (80-100); Monocytes Absolute Auto 600 /uL (0-900); Monocytes Percent Auto 7.2 % (3-14); Neutrophils Absolute Auto 6200 /uL (1500-7000); Neutrophils Percent Auto 69.6 % (50-75); Red Blood Cell Count 4.68 X10^6/uL (4.5-5.9); Red Cell Distribution Width 12.5 % (11.6-14.8); White Blood Cell Count 8.9 X10^3/uL (4.5-11.0)
[2019-05-07 18:51] LABS: Alanine Aminotransferase 42 IU/L (<50); Albumin 4.4 g/dL (3.5-5.0); Albumin Globulin Ratio 1.6 (1.0-2.8); Alkaline Phosphatase 55 U/L (38-126); Aspartate Aminotransferase 42 IU/L (17-59); Bilirubin Total 0.6 mg/dL (0.2-1.3); Blood Urea Nitrogen 20 mg/dL (9-20); Calcium 9.8 mg/dL (8.4-10.2); Carbon Dioxide 25 mmol/L (22-32); Chloride 104 mmol/L (98-107); Cholesterol 126 mg/dL (140-199); Estimated Glomerular Filt Rate > 60.0 mL/min (>60); Globulin 2.7 g/dL (1.7-4.1); Glucose 83 mg/dL (80-110); HDL Cholesterol 25 mg/dL (40-60); HEMOLYSIS 36 (0-50); LDL Cholesterol Calculated 63 mg/dL (<100); Potassium 4.6 mmol/L (3.4-5.1); Sodium 140 mmol/L (137-145); Total Protein 7.1 g/dL (6.3-8.2); Triglycerides 189 mg/dL (35-150)
== END ==
PROVIDERS: PCP Family Medicine; Visit Provider Physician Assistant
DX: E78.2 Mixed hyperlipidemia (principal); I10 Essential (primary) hypertension
CPT/HCPCS: 36415; 80053; 80061; 85025

== ENCOUNTER → 2024-02-29 08:31 | Outpatient (CLI) | payer MEDICARE, OTHER, SELFPAY ==
[2019-04-30 18:27] VITALS: BMI 27.3
--- NOTE | 2024-02-29 08:33 | DI.MRI.S_ITS ---
PROCEDURE: MR SHOULDER RT WO CON INDICATIONS: PAIN IN RT SHOULDER TECHNIQUE: Noncontrast oblique coronal T2 fast spin echo with fat saturation, oblique sagittal T1 spin echo and T2 fast spin echo with fat saturation, axial T1 spin echo and T2 fast spin echo with fat saturation through the shoulder. COMPARISON: None. FINDINGS: Image quality: Excellent. There is a intrasubstance tear involving the supraspinatus tendon at its attachment on the greater tuberosity involving approximately 40-50 percent of the tendon thickness. There is a questionable small area of calcific tendinitis involving the distal supraspinatus tendon. Further evaluation is clinically indicated plain film correlation may be of further clinical value. There is some mild to moderate tendinopathy involving the supraspinatus tendon as well as the subscapularis tendon. Bicipital tendon within is normal position in the bicipital groove. Glenoid labrum is grossly unremarkable. There is severe AC joint degenerative change and mild glenohumeral joint degenerative change. A small shoulder joint effusion is present. IMPRESSION: 1. Intrasubstance tear of the supraspinatus tendon at its attachment on the greater tuberosity involving 40-50 percent of the tendon thickness. 2. [id number] tendinopathy involving the supraspinatus and subscapularis tendons. 3. Severe AC joint degenerative change. 4. Mild glenohumeral joint degenerative change. 5. Small shoulder joint effusion. 6. Question focal area of calcific tendinitis involving the distal supraspinatus tendon. If further evaluation is clinically indicated plain film correlation may be of further clinical value. Dictated by: wDight Sadler M.D. on 03/01/2024 at 9:04 Approved by: Dwight Sadler M.D. on 03/01/2024 at 9:10
== END ==
PROVIDERS: PCP Family Medicine
DX: M75.111 Incomplete rotator cuff tear or rupture of right shoulder, not specified as traumatic (principal); M25.511 Pain in right shoulder; R20.2 Paresthesia of skin; M25.411 Effusion, right shoulder
CPT/HCPCS: 73221

== ENCOUNTER 2025-05-16 11:26 | Emergency (ER) | payer MEDICARE, OTHER, SELFPAY ==
[2019-04-30 18:27] VITALS: BMI 27.3
[2025-05-16] VITALS (12 sets, daily range): BP systolic 119–130; BP diastolic 60–73; PULSE 79–99; RESP 11–45; TEMP 36.3; O2SAT 95–97; BMI 26.9
[2025-05-16 12:29] LABS: Add Manual Diff / Slide Review NO; Hematocrit 47.7 % (41-53); Hemoglobin 16.6 g/dL (13.5-17.5); Lymphocytes Absolute Auto 1000 /uL (1100-4500); Mean Corpuscular HGB Conc 34.8 % (30-36); Mean Corpuscular Hemoglobin 31.8 PG (26-34); Mean Corpuscular Volume 91.3 fL (80-100); Platelet Count 182 X10^3/uL (150-400)
[2025-05-16 12:37] LABS: Alanine Aminotransferase 26 IU/L (<50); Albumin 4.9 g/dL (3.5-5.0); Albumin Globulin Ratio 1.4 (1.0-2.8); Alkaline Phosphatase 55 U/L (38-126); Blood Urea Nitrogen 25 mg/dL (9-20); Calcium 9.9 mg/dL (8.4-10.2); Carbon Dioxide 25 mmol/L (22-32); Chloride 101 mmol/L (98-107); Estimated Glomerular Filt Rate 45 mL/min (>60); Globulin 3.5 g/dL (1.7-4.1); Glucose 126 mg/dL (70-99); HEMOLYSIS < 15 (0-50); Lipase 90 U/L (23-300); Potassium 4.7 mmol/L (3.4-5.1); Sodium 139 mmol/L (137-145); Total Protein 8.4 g/dL (6.3-8.2)
--- NOTE | 2025-05-16 14:46 | DI.CT.S_ITS ---
PROCEDURE: CT ABDOMEN PELVIS W CON
[2025-05-16 15:09] LABS: Appearance Urine UA CLEAR; Bilirubin Urine UA 2+ (NEGATIVE); Glucose Urine UA NEGATIVE (Negative); Ketones Urine UA TRACE (NEGATIVE); Leukocyte Esterase Urine UA NEGATIVE (NEGATIVE); Nitrite Urine UA POSITIVE (Negative); Occult Blood Urine UA TRACE-INTACT (Negative); Protein Urine UA 1+ (Negative); Specific Gravity Urine UA >=1.030 (1.000-1.035); Urobilinogen Urine UA 1.0 E.U./dL (0.2); pH Urine UA 5.0 (4.5-8.0)
[2025-05-16] MEDS: ONDANSETRON 4 MG/2 ML INJ IV ×2 (15:11→16:37)
[2025-05-16 15:12] LABS: Color Urine UA ORANGE
[2025-05-16 15:19] LABS: Culture Indicated Urine Specimen Cultured; Ictotest Urine Positive (Negative)
[2025-05-16] MEDS: SODIUM CHLORIDE 0.9% 1,000 ML 1000 ML IV ×2 (16:08→16:37)
--- NOTE | 2025-05-16 17:58 | ED.SYNCOPE ---
HPI - Syncope <Ja Arce PA-C - Last Filed: 05/16/25 18:43> General Chief Complaint: Syncope Stated Complaint: low blood pressure, Diverticulitis , dehydrated Time Seen by Provider: 05/16/25 14:23 Source: patient Mode of arrival: Ambulatory Limitations: no limitations History of Present Illness HPI narrative: 75-year-old male with past medical history BPH, diverticulitis, hyperlipidemia, atrial fibrillation presents to the ED with 4 days of lightheadedness, 2 falls, 1 episode of syncope. Patient states that he was preparing for a colonoscopy, started a clear liquid diet, following which his symptoms started. Patient complains of nausea, lightheadedness, left lower quadrant pain. Patient states that the left lower quadrant pain is very similar to when he had prior episodes of diverticulitis. No chest pain, shortness of breath, fever, chills, dysuria. Patient however does endorse dark colored urine. Patient states he has not been able to drink enough water due to the nausea. Related Data Home Medications ?Medication ?Instructions ?Recorded ?Confirmed atorvastatin 20 mg tablet 20 mg PO QPM 90 days 06/19/18 04/30/19 fluticasone propionate 50 1 spray intranasal DIRECTED 90 06/19/18 04/30/19 mcg/actuation nasal days spray,suspension hydrochlorothiazide 25 mg tablet 12.5 mg PO DAILY 90 days 06/19/18 04/30/19 lisinopril 20 mg tablet 10 mg PO DAILY 90 days 06/19/18 04/30/19 metoprolol tartrate 25 mg tablet 12.5 mg PO BID 90 days 06/19/18 04/30/19 CoQ-10 1 cap PO DAILY 04/30/19 04/30/19 Fish Oil 1 cap PO DAILY 04/30/19 04/30/19 Probiotic 1 cap PO DAILY 04/30/19 04/30/19 apple cider vinegar 1 cap PO DAILY 04/30/19 04/30/19 celecoxib 200 mg capsule (Celebrex) 200 mg PO QPM 04/30/19 04/30/19 finasteride 5 mg tablet 5 mg PO DAILY 04/30/19 04/30/19 multivitamin 1 tab PO DAILY 04/30/19 04/30/19 red yeast rice 1 cap PO DAILY 04/30/19 04/30/19 turmeric 2 tab PO QPM 04/30/19 04/30/19 Previous Rx's ?Medication ?Instructions ?Recorded ondansetron HCl 4 mg tablet 4 mg PO Q6H PRN nausea and 05/01/19 (Zofran) vomiting #20 tabs ciprofloxacin HCl 500 mg tablet 500 mg PO Q12H 5 days #10 tabs 05/16/25 metronidazole 500 mg tablet 500 mg PO Q8H 5 days #15 tabs 05/16/25 Allergies Allergy/AdvReac Type Severity Reaction Status Date / Time No Known Allergies Allergy Verified 05/16/25 11:51 Review of Systems <Ja Arce PA-C - Last Filed: 05/16/25 18:43> Constitutional Constitutional: Denies chills, Denies fatigue, Denies fever(s), Denies frequent falls, Denies lethargy and Denies weakness Eyes Eyes: Denies change in vision, Denies eye discharge, Denies irritation and Denies loss of vision ENT Ears, Nose, Mouth, and Throat: Denies change in voice, Denies dizziness, Denies neck pain, Denies sore throat and Denies throat swelling Cardiovascular Cardiovascular: Denies chest pain, Reports syncope, Denies irregular heart rhythm, Reports lightheadedness, Denies palpitations, Denies dyspnea, Denies dyspnea on exertion and Denies orthopnea Respiratory Respiratory: Denies cough, Denies dyspnea, Denies dyspnea on exertion and Denies wheezing Gastrointestinal Gastrointestinal: Denies abdominal pain, Denies change in bowel habits, Denies diarrhea, Reports nausea and Denies vomiting Musculoskeletal Musculoskeletal: Denies neck pain and Denies numbness Integumentary/Breasts Skin/Breast: Denies pruritus, Denies erythema, Denies rash and Denies wounds Neurologic Neurologic: Denies behavioral changes, Denies confusion, Denies dizziness, Reports syncope, Denies frequent falls, Denies loss of vision, Denies numbness and Denies weakness Psychiatric Psychiatric: Denies anxiety, Denies behavioral changes, Denies confusion, Denies depression, Denies homicidal ideation and Denies suicidal ideation Endocrine Endocrine: Denies fatigue, Denies flushing and Denies palpitations Hematologic/Lymphatic Hematologic/Lymphatic: Denies easy bruising Allergic/Immunologic Allergic/Immunologic: Denies urticaria, Denies throat swelling and Denies wheezing Patient History <Ja Arce PA-C - Last Filed: 05/16/25 18:43> Medical History Ulcerative colitis PAF (paroxysmal atrial fibrillation) (~2013) BPH (benign prostatic hyperplasia) Hyperlipidemia Hypertension Cervical spondylosis Cervical stenosis of spinal canal Family History Mother Hypertension Father ESRD (end stage renal disease) Social History household members: spouse Smoking Status: Never smoker alcohol intake: current Smoking Status: Never smoker alcohol intake frequency: 0-2 drinks per day Exam <Ja Arce PA-C - Last Filed: 05/16/25 18:43> Narrative Exam Narrative: Const General:?cooperative, healthy appearing and comfortable [facility] Head:?normal to inspection Ears:?hearing grossly normal bilaterally Nose:?external nose normal Face and sinus:?normal facial exam and sinuses nontender Mouth:?oral mucosae normal Throat:?posterior oropharynx normal Eyes General:?appearance normal, both eyes and all related structures Neck Neck:?normal visual inspection and no lymphadenopathy noted Resp Effort & Inspection:?normal respiratory effort Auscultation:?clear to auscultation bilaterally Cardio Rate:?regular rate Rhythm:?regular rhythm GI Abdomen is soft, nondistended, tender to palpation in the left lower quadrant. Neuro General:?patient alert, patient awake and patient oriented x3 Initial Vital Signs Initial Vital Signs: Vital Signs Temperature 97.4 F L 05/16/25 11:51 Pulse Rate 94 H 05/16/25 11:51 Respiratory Rate 18 05/16/25 11:51 Blood Pressure 119/73 05/16/25 11:51 Pulse Oximetry 97 05/16/25 11:51 Oxygen Delivery Method Room Air 05/16/25 11:51 <Gisell Mcpherson MD - Last Filed: 05/17/25 11:21> Initial Vital Signs Initial Vital Signs: Vital Signs Temperature 97.4 F L 05/16/25 11:51 Pulse Rate 94 H 05/16/25 11:51 Respiratory Rate 18 05/16/25 11:51 Blood Pressure 119/73 05/16/25 11:51 Pulse Oximetry 97 05/16/25 11:51 Oxygen Delivery Method Room Air 05/16/25 11:51 Course <Ja Arce PA-C - Last Filed: 05/16/25 18:43> Orders Ordered: Discontinued Medications Famotidine (Famotidine 20 Mg/2 Ml Vial) 40 mg IV NOW [facility] Last Admin: 05/16/25 18:35 Dose: 40 mg Documented By: KILLIAN Sodium Chloride (Normal Saline 0.9%) 1,000 mls @ 1,000 mls/hr IV BOLUS ONE Stop: 05/16/25 15:37 Last Infusion: 05/16/25 17:58 Dose: Infused Documented By: Admin: 05/16/25 16:08 Dose: 1,000 mls/hr Documented By: KILLIAN Sodium Chloride (Normal Saline 0.9%) 1,000 mls @ 1,000 mls/hr IV BOLUS ONE Stop: 05/16/25 16:42 Last Infusion: 05/16/25 17:59 Dose: Infused Documented By: Admin: 05/16/25 16:37 Dose: 1,000 mls/hr Documented By: NILAM Ondansetron HCl (Ondansetron 4 Mg/2 Ml Inj) 4 mg IV NOW PRN PRN Reason: Nausea And Vomiting Ondansetron HCl (Ondansetron 4 Mg Odt) 4 mg PO NOW PRN PRN Reason: Nausea And Vomiting Ondansetron HCl (Ondansetron 4 Mg/2 Ml Inj) 4 mg IV NOW ONE Stop: 05/16/25 14:51 Last Admin: 05/16/25 15:11 Dose: 4 mg Documented By: KILLIAN Ondansetron HCl (Ondansetron 4 Mg/2 Ml Inj) 4 mg IV NOW ONE Stop: 05/16/25 16:26 Last Admin: 05/16/25 16:37 Dose: 4 mg Documented By: NILAM Vital Signs Vital signs: Vital Signs - 8 hr 05/16/25 11:51 Temperature 97.4 F L Pulse Rate 94 H Respiratory Rate 18 Blood Pressure 119/73 Pulse Oximetry 97 Oxygen Delivery Method Room Air <Gisell Mcpherson MD - Last Filed: 05/17/25 11:21> Orders Ordered: Discontinued Medications Famotidine (Famotidine 20 Mg/2 Ml Vial) 40 mg IV NOW [facility] Last Admin: 05/16/25 18:35 Dose: 40 mg Documented By: KILLIAN Sodium Chloride (Normal Saline 0.9%) 1,000 mls @ 1,000 mls/hr IV BOLUS ONE Stop: 05/16/25 15:37 Last Infusion: 05/16/25 17:58 Dose: Infused Documented By: Admin: 05/16/25 16:08 Dose: 1,000 mls/hr Documented By: KILLIAN Sodium Chloride (Normal Saline 0.9%) 1,000 mls @ 1,000 mls/hr IV BOLUS ONE Stop: 05/16/25 16:42 Last Infusion: 05/16/25 17:59 Dose: Infused Documented By: Admin: 05/16/25 16:37 Dose: 1,000 mls/hr Documented By: NILAM Ondansetron HCl (Ondansetron 4 Mg/2 Ml Inj) 4 mg IV NOW PRN PRN Reason: Nausea And Vomiting Ondansetron HCl (Ondansetron 4 Mg Odt) 4 mg PO NOW PRN PRN Reason: Nausea And Vomiting Ondansetron HCl (Ondansetron 4 Mg/2 Ml Inj) 4 mg IV NOW ONE Stop: 05/16/25 14:51 Last Admin: 05/16/25 15:11 Dose: 4 mg Documented By: KILLIAN Ondansetron HCl (Ondansetron 4 Mg/2 Ml Inj) 4 mg IV NOW ONE Stop: 05/16/25 16:26 Last Admin: 05/16/25 16:37 Dose: 4 mg Documented By: NILAM Vital Signs Vital signs: Vital Signs - 8 hr 05/16/25 11:51 Temperature 97.4 F L Pulse Rate 94 H Respiratory Rate 18 Blood Pressure 119/73 Pulse Oximetry 97 Oxygen Delivery Method Room Air MDM - Syncope <Ja Arce PA-C - Last Filed: 05/16/25 18:43> Lab Data 05/16/25 12:12 05/16/25 17:45 Labs: Lab Results 05/16/25 05/16/25 05/16/25 Range/Units 12:12 14:48 17:45 WBC 11.5 H (4.5-11.0) X10^3/uL RBC 5.23 (4.5-5.9) X10^6/uL Hgb 16.6 (13.5-17.5) g/dL Hct 47.7 (41-53) % MCV 91.3 (80-100) fL MCH 31.8 (26-34) PG MCHC 34.8 (30-36) % RDW 13.6 (11.6-14.8) % Plt Count 182 (150-400) X10^3/uL Neut % (Auto) 82.7 H (50-75) % Lymph % (Auto) 8.5 L (25-40) % Swisher % (Auto) 8.3 (3-14) % Eos % (Auto) 0.1 L (2-4) % Baso % (Auto) 0.4 (0-2) % Neut # (Auto) 9500 H (7454-3771) /uL Lymph # (Auto) 1000 L (9667-5508) /uL Swisher # (Auto) 1000 H (0-900) /uL Eos # (Auto) 0 (0-450) /uL Baso # (Auto) 0 (0-100) /uL Sodium 139 137 (137-145) mmol/L Potassium 4.7 4.2 (3.4-5.1) mmol/L Chloride 101 104 (98-107) mmol/L Carbon Dioxide 25 23 (22-32) mmol/L BUN 25 H 24 H (9-20) mg/dL Creatinine 1.57 H 1.23 (0.66-1.25) mg/dL Estimated GFR 45 L > 60 (>60) mL/min BUN/Creatinine Ratio 15.9 19.5 (6-22) Glucose 126 H 98 (70-99) mg/dL Calcium 9.9 8.3 L (8.4-10.2) mg/dL Total Bilirubin 1.8 H 1.4 H (0.2-1.3) mg/dL AST 31 28 (17-59) IU/L ALT 26 20 (<50) IU/L Alkaline Phosphatase 55 45 (38-126) U/L Total Protein 8.4 H 6.5 (6.3-8.2) g/dL Albumin 4.9 3.7 (3.5-5.0) g/dL Globulin 3.5 2.8 (1.7-4.1) g/dL Albumin/Globulin Ratio 1.4 1.3 (1.0-2.8) Lipase 90 (23-300) U/L Urine Color [place] Urine Appearance Clear Urine pH 5.0 (4.5-8.0) Ur Specific Branch >=1.030 H (1.000-1.035) Urine Protein 1+ H (Negative) Urine Glucose (UA) Negative (Negative) g/dL Urine Ketones Trace H (NEGATIVE) Urine Occult Blood Trace-intact (Negative) Urine Nitrate Positive H (Negative) Urine Bilirubin 2+ H (NEGATIVE) Ur Bilirubin Confirm Positive H (Negative) Urine Urobilinogen 1.0 (0.2) E.U./dL Ur Leukocyte Esterase Negative (NEGATIVE) Urine RBC 0-1/hpf (0-5/HPF) Urine WBC 0-1/hpf (0-5/HPF) Ur Squamous Epith Cells None seen (0-5/HPF) Urine Bacteria Many (>30) H (None) Urine Mucus 4+ H (Negative) Ur Culture Indicated? Specimen cultured Vol Urine Centrifuged 10ml (spun) 05/16/25 Range/Units Unknown WBC (4.5-11.0) X10^3/uL RBC (4.5-5.9) X10^6/uL Hgb (13.5-17.5) g/dL Hct (41-53) % MCV (80-100) fL MCH (26-34) PG MCHC (30-36) % RDW (11.6-14.8) % Plt Count (150-400) X10^3/uL Neut % (Auto) (50-75) % Lymph % (Auto) (25-40) % Swisher % (Auto) (3-14) % Eos % (Auto) (2-4) % Baso % (Auto) (0-2) % Neut # (Auto) (3716-0802) /uL Lymph # (Auto) (7886-2165) /uL Swisher # (Auto) (0-900) /uL Eos # (Auto) (0-450) /uL Baso # (Auto) (0-100) /uL Sodium Cancelled (137-145) mmol/L Potassium Cancelled (3.4-5.1) mmol/L Chloride Cancelled (98-107) mmol/L Carbon Dioxide Cancelled (22-32) mmol/L BUN Cancelled (9-20) mg/dL Creatinine Cancelled (0.66-1.25) mg/dL Estimated GFR Cancelled (>60) mL/min BUN/Creatinine Ratio Cancelled (6-22) Glucose Cancelled (70-99) mg/dL Calcium Cancelled (8.4-10.2) mg/dL Total Bilirubin Cancelled (0.2-1.3) mg/dL AST Cancelled (17-59) IU/L ALT Cancelled (<50) IU/L Alkaline Phosphatase Cancelled (38-126) U/L Total Protein Cancelled (6.3-8.2) g/dL Albumin Cancelled (3.5-5.0) g/dL Globulin Cancelled (1.7-4.1) g/dL Albumin/Globulin Ratio Cancelled (1.0-2.8) Lipase (23-300) U/L Urine Color Urine Appearance Urine pH (4.5-8.0) Ur Specific Branch (1.000-1.035) Urine Protein (Negative) Urine Glucose (UA) (Negative) g/dL Urine Ketones (NEGATIVE) Urine Occult Blood (Negative) Urine Nitrate (Negative) Urine Bilirubin (NEGATIVE) Ur Bilirubin Confirm (Negative) Urine Urobilinogen (0.2) E.U./dL Ur Leukocyte Esterase (NEGATIVE) Urine RBC (0-5/HPF) Urine WBC (0-5/HPF) Ur Squamous Epith Cells (0-5/HPF) Urine Bacteria (None) Urine Mucus (Negative) Ur Culture Indicated? Vol Urine Centrifuged MDM Narrative Medical decision making narrative: 75-year-old male with past medical history BPH, diverticulitis, hyperlipidemia, atrial fibrillation presents to the ED with 4 days of lightheadedness, 2 falls, 1 episode of syncope. Concern for diverticulitis versus UTI versus hypovolemia versus other. Obtained EKG, labs, urinalysis, CT abdomen pelvis. EKG is normal sinus rhythm with no acute ST-T changes. Labs are significant for an elevated creatinine of 1.57, reduced GFR at 45, elevated bilirubin at 1.8. Other labs unremarkable. CT abdomen pelvis shows extensive diverticulosis and fat stranding wall thickening along the proximal sigmoid colon. Acute uncomplicated sigmoid diverticulitis. GFR and creatinine abnormality likely secondary to hypovolemia. Will give IV fluids, Zofran. Will repeat CMP, reassess. UA positive for nitrate and bilirubin. Repeat CMP shows much improved kidney function with a creatinine of 1.23, GFR greater than 60. Total bilirubin has also come down to 1.4 from 1.8. Patient endorses feeling much better, does complain of acid reflux. Patient given a dose of Pepcid IV. Recommend continuing Pepcid at home. Discussed findings with patient, counseled on diverticulitis, UTI, diet, antibiotics. Antibiotics prescribed. ED return precautions discussed with patient. Patient verbalized understanding. Medical records reviewed: Yes <Gisell Mcpherson MD - Last Filed: 05/17/25 11:21> Lab Data Labs: Lab Results 05/16/25 05/16/25 05/16/25 Range/Units 12:12 14:48 17:45 WBC 11.5 H (4.5-11.0) X10^3/uL RBC 5.23 (4.5-5.9) X10^6/uL Hgb 16.6 (13.5-17.5) g/dL Hct 47.7 (41-53) % MCV 91.3 (80-100) fL MCH 31.8 (26-34) PG MCHC 34.8 (30-36) % RDW 13.6 (11.6-14.8) % Plt Count 182 (150-400) X10^3/uL Neut % (Auto) 82.7 H (50-75) % Lymph % (Auto) 8.5 L (25-40) % Swisher % (Auto) 8.3 (3-14) % Eos % (Auto) 0.1 L (2-4) % Baso % (Auto) 0.4 (0-2) % Neut # (Auto) 9500 H (9201-6891) /uL Lymph # (Auto) 1000 L (3801-2447) /uL Swisher # (Auto) 1000 H (0-900) /uL Eos # (Auto) 0 (0-450) /uL Baso # (Auto) 0 (0-100) /uL Sodium 139 137 (137-145) mmol/L Potassium 4.7 4.2 (3.4-5.1) mmol/L Chloride 101 104 (98-107) mmol/L Carbon Dioxide 25 23 (22-32) mmol/L BUN 25 H 24 H (9-20) mg/dL Creatinine 1.57 H 1.23 (0.66-1.25) mg/dL Estimated GFR 45 L > 60 (>60) mL/min BUN/Creatinine Ratio 15.9 19.5 (6-22) Glucose 126 H 98 (70-99) mg/dL Calcium 9.9 8.3 L (8.4-10.2) mg/dL Total Bilirubin 1.8 H 1.4 H (0.2-1.3) mg/dL AST 31 28 (17-59) IU/L ALT 26 20 (<50) IU/L Alkaline Phosphatase 55 45 (38-126) U/L Total Protein 8.4 H 6.5 (6.3-8.2) g/dL Albumin 4.9 3.7 (3.5-5.0) g/dL Globulin 3.5 2.8 (1.7-4.1) g/dL Albumin/Globulin Ratio 1.4 1.3 (1.0-2.8) Lipase 90 (23-300) U/L Urine Color [place] Urine Appearance Clear Urine pH 5.0 (4.5-8.0) Ur Specific Branch >=1.030 H (1.000-1.035) Urine Protein 1+ H (Negative) Urine Glucose (UA) Negative (Negative) g/dL Urine Ketones Trace H (NEGATIVE) Urine Occult Blood Trace-intact (Negative) Urine Nitrate Positive H (Negative) Urine Bilirubin 2+ H (NEGATIVE) Ur Bilirubin Confirm Positive H (Negative) Urine Urobilinogen 1.0 (0.2) E.U./dL Ur Leukocyte Esterase Negative (NEGATIVE) Urine RBC 0-1/hpf (0-5/HPF) Urine WBC 0-1/hpf (0-5/HPF) Ur Squamous Epith Cells None seen (0-5/HPF) Urine Bacteria Many (>30) H (None) Urine Mucus 4+ H (Negative) Ur Culture Indicated? Specimen cultured Vol Urine Centrifuged 10ml (spun) 05/16/25 Range/Units Unknown WBC (4.5-11.0) X10^3/uL RBC (4.5-5.9) X10^6/uL Hgb (13.5-17.5) g/dL Hct (41-53) % MCV (80-100) fL MCH (26-34) PG MCHC (30-36) % RDW (11.6-14.8) % Plt Count (150-400) X10^3/uL Neut % (Auto) (50-75) % Lymph % (Auto) (25-40) % Swisher % (Auto) (3-14) % Eos % (Auto) (2-4) % Baso % (Auto) (0-2) % Neut # (Auto) (4915-3656) /uL Lymph # (Auto) (3653-4283) /uL Swisher # (Auto) (0-900) /uL Eos # (Auto) (0-450) /uL Baso # (Auto) (0-100) /uL Sodium Cancelled (137-145) mmol/L Potassium Cancelled (3.4-5.1) mmol/L Chloride Cancelled (98-107) mmol/L Carbon Dioxide Cancelled (22-32) mmol/L BUN Cancelled (9-20) mg/dL Creatinine Cancelled (0.66-1.25) mg/dL Estimated GFR Cancelled (>60) mL/min BUN/Creatinine Ratio Cancelled (6-22) Glucose Cancelled (70-99) mg/dL Calcium Cancelled (8.4-10.2) mg/dL Total Bilirubin Cancelled (0.2-1.3) mg/dL AST Cancelled (17-59) IU/L ALT Cancelled (<50) IU/L Alkaline Phosphatase Cancelled (38-126) U/L Total Protein Cancelled (6.3-8.2) g/dL Albumin Cancelled (3.5-5.0) g/dL Globulin Cancelled (1.7-4.1) g/dL Albumin/Globulin Ratio Cancelled (1.0-2.8) Lipase (23-300) U/L Urine Color Urine Appearance Urine pH (4.5-8.0) Ur Specific Branch (1.000-1.035) Urine Protein (Negative) Urine Glucose (UA) (Negative) g/dL Urine Ketones (NEGATIVE) Urine Occult Blood (Negative) Urine Nitrate (Negative) Urine Bilirubin (NEGATIVE) Ur Bilirubin Confirm (Negative) Urine Urobilinogen (0.2) E.U./dL Ur Leukocyte Esterase (NEGATIVE) Urine RBC (0-5/HPF) Urine WBC (0-5/HPF) Ur Squamous Epith Cells (0-5/HPF) Urine Bacteria (None) Urine Mucus (Negative) Ur Culture Indicated? Vol Urine Centrifuged Discharge Plan Departure Patient Disposition: Home Clinical Impression: Diverticulitis, Acute dehydration Instructions: DI for Diverticulitis Activity Restrictions/Additional Instructions: You were evaluated in the emergency department for lightheadedness, abdominal pain. The CT scan does show uncomplicated diverticulitis, for which you are being prescribed antibiotics. Your urine also shows the starting of a UTI. The antibiotics for the diverticulitis will take care of the UTI as well. Please note that you should not consume alcohol while on metronidazole, since it can have very serious consequences. You responded well to fluids and nausea medication. Your kidney function bounced back up with the fluids. Please continue to stay well hydrated. You may continue the clear fluid diet for the next couple of days, slowly advancing the diet to a normal diet over the next several days. You may take Pepcid AC twice a day, 1/2 hour before breakfast and another 1/2 hour before dinner for acid reflux. Please follow-up with your PCP as soon as possible. Return to the emergency department if you have worsening symptoms. Prescriptions: New ciprofloxacin HCl 500 mg tablet 500 mg PO Q12H 5 Days Qty: 10 0RF metronidazole 500 mg tablet 500 mg PO Q8H 5 Days Qty: 15 0RF No Action finasteride 5 mg tablet 5 mg PO DAILY multivitamin Tablet 1 tab PO DAILY CoQ-10 1 cap PO DAILY Fish Oil 1 cap PO DAILY Probiotic 1 cap PO DAILY apple cider vinegar 1 cap PO DAILY red yeast rice 1 cap PO DAILY turmeric 2 tab PO QPM celecoxib [Celebrex] 200 mg capsule 200 mg PO QPM ondansetron HCl [Zofran] 4 mg tablet 4 mg PO Q6H PRN (Reason: nausea and vomiting) Qty: 20 0RF atorvastatin 20 mg tablet 20 mg PO QPM 90 Days lisinopril 20 mg tablet 10 mg PO DAILY 90 Days hydrochlorothiazide 25 mg tablet 12.5 mg PO DAILY 90 Days fluticasone propionate 50 mcg/actuation spray,suspension 1 spray NASAL DIRECTED 90 Days metoprolol tartrate 25 mg tablet 12.5 mg PO BID 90 Days Referrals: Sofy Whitfield MD [Primary Care Provider, Family Practice] Stand Alone Forms: Patient Portal/API ED Sign-out <Gisell Mcpherson MD - Last Filed: 05/17/25 11:21> Cosign ED Attending Pumaature Attestation: I was available for consultation during this patient's emergency department visit. This chart is signed by myself for administrative purposes only. I did not have direct contact with this patient during this visit. They were seen independently by the APC.
[2025-05-16 18:09] LABS: Alanine Aminotransferase 20 IU/L (<50); Albumin 3.7 g/dL (3.5-5.0); Albumin Globulin Ratio 1.3 (1.0-2.8); Alkaline Phosphatase 45 U/L (38-126); Blood Urea Nitrogen 24 mg/dL (9-20); Calcium 8.3 mg/dL (8.4-10.2); Carbon Dioxide 23 mmol/L (22-32); Chloride 104 mmol/L (98-107); Estimated Glomerular Filt Rate > 60 mL/min (>60); Globulin 2.8 g/dL (1.7-4.1); Glucose 98 mg/dL (70-99); HEMOLYSIS 24 (0-50); Potassium 4.2 mmol/L (3.4-5.1); Sodium 137 mmol/L (137-145); Total Protein 6.5 g/dL (6.3-8.2)
[2025-05-16] MEDS: FAMOTIDINE 20 MG/2 ML VIAL 40 MG IV (18:35)
== END 2025-05-16 18:48 | disposition home or self-care (01) ==
PROVIDERS: Emergency Medicine; Emergency Provider Student in an Organized Health Care Education/Training Program; PCP Family Medicine
DX: K57.92 Diverticulitis of intestine, part unspecified, without perforation or abscess without bleeding (principal); R10.32 Left lower quadrant pain; E86.0 Dehydration; R42 Dizziness and giddiness; R11.0 Nausea
CPT/HCPCS: 36415; 74177; 80053; 81001; 83690; 85025; 87086; 93005; 96361; 96374; 96375; 96376; 99284; J2405; J7030; Q9967

== ENCOUNTER 2025-05-19 08:44 | Observation (INO) | payer MEDICARE, OTHER, SELFPAY ==
[2019-04-30 18:27] VITALS: BMI 27.3
[2025-05-19] VITALS (19 sets, daily range): BP systolic 91–135; BP diastolic 59–80; PULSE 74–134; RESP 11–26; TEMP 36.4–37.8; O2SAT 94–100; BMI 27.4
--- NOTE | 2025-05-19 08:57 | DI.CT.S_ITS ---
PROCEDURE: CT ABDOMEN PELVIS W CON INDICATIONS: n/v/d since Friday, dx diverticulitis TECHNIQUE: After the administration of intravenous contrast, axial sections acquired from the lung bases to the pubic symphysis. Coronal and sagittal reformats were performed. For radiation dose reduction, the following was used: automated exposure control, adjustment of mA and/or kV according to patient size. COMPARISON: [facility], CT, CT ABDOMEN PELVIS W CON, 05/16/2025, 14:55. FINDINGS: Image quality: Diagnostic. Lower Chest: Normal heart size. Trace pericardial effusion. Extreme lung bases are clear. ABDOMEN: Liver: No solid mass. Gallbladder: No radiopaque gallstones or wall thickening. Biliary ducts: No biliary dilation. Pancreas: No ductal dilation. Spleen: Size is within normal limits. Adrenal Glands: No adrenal nodules. Kidneys and Ureters: No hydronephrosis. No solid mass. No complex renal cystic lesion which requires follow up. Stomach and Bowel: Moderately-severe diverticulosis. Mild interval improvement in proximal sigmoid diverticulitis. This is uncomplicated. There is no free air or free fluid or abscess cavity. Peritoneum: No abnormal intraperitoneal fluid. No free air. Ventral Wall: No significant ventral hernia. Abdominal Nodes: No retroperitoneal or mesenteric adenopathy by size criteria. Vessels: Aorta and inferior vena cava are normal in size. PELVIS: Pelvic Organs: Moderate to severe prostatomegaly. Bladder: No bladder wall thickening, accounting for underdistention. Pelvic Nodes: No enlarged lymph nodes. Miscellaneous: No inguinal hernias are seen. Bones: No aggressive osseous abnormality. IMPRESSION: 1. Improved acute sigmoid diverticulitis, still present. 2. Underlying moderately severe diverticulosis. 3. Prostatomegaly. Dictated by: Jeison Rascon M.D. on 05/19/2025 at 9:45 Approved by: Jeison Rascon M.D. on 05/19/2025 at 9:48
--- NOTE | 2025-05-19 08:58 | EKG_ITS ---
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
--- NOTE | 2025-05-19 08:58 | DI.RAD.S_ITS ---
PROCEDURE: XR CHEST 1V INDICATIONS: n/v/d since Friday, dx diverticulitis TECHNIQUE: One view of the chest was acquired. COMPARISON: None. FINDINGS: Surgical changes and devices: None. Lungs and pleura: Patchy bibasilar atelectasis. No pleural effusions. Mediastinum: Mediastinal contours appear normal. Heart size is normal. Bones and chest wall: No suspicious bony lesions. Overlying soft tissues appear unremarkable. IMPRESSION: Patchy bibasilar atelectasis. Dictated by: Jeison Rascon M.D. on 05/19/2025 at 9:16 Approved by: Jeison Rascon M.D. on 05/19/2025 at 9:25
--- NOTE | 2025-05-19 08:59 | ED.NAVMDI ---
HPI - Nausea/Vomiting/Diarrhea General Chief complaint: Dizziness Stated complaint: Reaction to the antibiotics from ER visit 4 days Time Seen by Provider: 05/19/25 08:57 Source: patient, RN notes reviewed and old records reviewed Mode of arrival: Ambulatory History of Present Illness HPI Narrative: 75-year-old male history of BPH, dyslipidemia, atrial fibrillation on metoprolol but no anticoagulants with recent diagnosis of diverticulitis patient was seen here in the emergency department on 05/16/2025 was started on Cipro and Flagyl for diverticulitis and/or UTI. Urine culture from 05/16/2025 was negative. Patient states since then his abdominal pain has not improved but he has felt generally unwell he has started having muscle aches down both legs. He has had what he describes as an indigestion denies chest pain he has felt a little short of breath. He has not noted that has heart rates elevated but is here in the department. He has had nausea and vomiting 1st episode was after he left the hospital in his had multiple episodes over the last 2 days he has also had increasing diarrhea he denies any black or bloody stools. He denies any urinary symptoms. No syncope but has felt a little lightheaded. Patient states he takes metoprolol versus atrial fibrillation he states he does not take any anticoagulants. Patient states no known drug allergies. He denies tobacco, he denies any alcohol use, he denies any recreational drugs. He notes he did not have it his metoprolol this morning he is unsure if he had kept it down over the last several days. Related Data Home Medications ?Medication ?Instructions ?Recorded ?Confirmed metoprolol tartrate 25 mg tablet 12.5 mg PO BID 90 days 06/19/18 05/19/25 CoQ-10 1 cap PO DAILY 04/30/19 05/19/25 Fish Oil 1 cap PO DAILY 04/30/19 05/19/25 Probiotic 1 cap PO DAILY 04/30/19 05/19/25 apple cider vinegar 1 cap PO DAILY 04/30/19 05/19/25 finasteride 5 mg tablet 5 mg PO DAILY 04/30/19 05/19/25 multivitamin 1 tab PO DAILY 04/30/19 05/19/25 red yeast rice 1 cap PO DAILY 04/30/19 05/19/25 turmeric 2 tab PO QPM 04/30/19 05/19/25 Previous Rx's ?Medication ?Instructions ?Recorded ondansetron HCl 4 mg tablet 4 mg PO Q6H PRN nausea and 05/01/19 (Zofran) vomiting #20 tabs Allergies Allergy/AdvReac Type Severity Reaction Status Date / Time No Known Allergies Allergy Verified 05/16/25 11:51 Review of Systems Review of Systems ROS Unobtainable: All systems reviewed & are unremarkable except as noted in HPI and below Patient History Medical History Ulcerative colitis PAF (paroxysmal atrial fibrillation) (~2013) BPH (benign prostatic hyperplasia) Hyperlipidemia Hypertension Cervical spondylosis Cervical stenosis of spinal canal Surgical History (Updated 05/19/25 @ 15:52 by Anna Oviedo) History of inguinal hernia repair Family History Mother Hypertension Father ESRD (end stage renal disease) Social History household members: spouse alcohol intake: former alcohol intake frequency: 0-2 drinks per day Exam Narrative Exam Narrative: GENERAL: Alert and oriented x three, male in moderate distress HEENT: Head normocephalic, atraumatic, EOMI, pupils reactive, face symmetric, moist mucous membranes NECK: Supple, full range of motion CARDIOVASCULAR: Irregularly irregular and tachycardic without murmurs, rubs or gallops. No JVD. No edema bilateral lower extremities. RESPIRATORY: Breath sounds equal bilaterally, no wheezes rales or rhonchi. No tachypnea accessory muscle use ABDOMEN: Soft, nontender. Nondistended. Normoactive bowel sounds all 4 quadrants. No guarding or rebound, rigidity, no mass : No CVA tenderness EXTREMITIES: Normal range of motion, no clubbing or edema. Neurovascularly intact NEUROLOGICAL: Cranial nerves II through XII grossly intact. Moving all extremities SKIN: Warm, dry, no petechiae, no rashes or lesions. Initial Vital Signs Initial Vital Signs: Vital Signs Temperature 97.5 F L 05/19/25 08:52 Pulse Rate 132 H 05/19/25 08:52 Respiratory Rate 18 05/19/25 08:52 Blood Pressure 126/62 05/19/25 08:52 Pulse Oximetry 96 05/19/25 08:52 Oxygen Delivery Method Room Air 05/19/25 08:52 Course Orders Ordered: ED Orders 05/19/25 08:57 CT abdomen pelvis w con Stat 05/19/25 08:58 XR chest 1V Stat EKG-12 Lead Stat 05/19/25 09:07 Complete Blood Count AUTO DIFF Stat Comprehensive Metabolic Panel Stat Lactate (Lactic Acid) Stat NT-proBNP (BNP-Adult 18+) Stat PTT Partial Thromboplastin Vasiliy Stat Procalcitonin Stat Prothrombin Time INR Stat Trop I [Troponin I] Stat 05/19/25 09:20 Blood Culture Stat Discontinued Medications Sodium Chloride (Normal Saline 0.9%) 1,000 mls @ 1,000 mls/hr IV BOLUS ONE Stop: 05/19/25 09:56 Last Infusion: 05/19/25 10:16 Dose: Infused Documented By: Admin: 05/19/25 09:20 Dose: 1,000 mls/hr Documented By: SIVA Metoprolol Tartrate (Metoprolol Tartrate 5 Mg/5 Ml Inj) 5 mg IV Q5M NEY Stop: 05/19/25 10:26 Last Admin: 05/19/25 10:39 Dose: Not Given Documented By: Admin: 05/19/25 10:39 Dose: Not Given Documented By: Admin: 05/19/25 10:09 Dose: 5 mg Documented By: SIVA Ondansetron HCl (Ondansetron 4 Mg/2 Ml Inj) 4 mg IV NOW ONE Stop: 05/19/25 09:04 Last Admin: 05/19/25 09:20 Dose: 4 mg Documented By: SIVA Vital Signs Vital signs: Vital Signs - 8 hr 05/19/25 08:52 05/19/25 09:47 05/19/25 09:48 Temperature 97.5 F L Pulse Rate 132 H 134 H Respiratory Rate 18 19 Blood Pressure 126/62 135/65 Pulse Oximetry 96 94 Oxygen Delivery Method Room Air 05/19/25 09:48 05/19/25 10:00 05/19/25 10:00 Temperature Pulse Rate 130 H 127 H Respiratory Rate 18 17 Blood Pressure 112/76 Pulse Oximetry 94 99 Oxygen Delivery Method 05/19/25 10:08 05/19/25 10:08 05/19/25 10:15 Temperature Pulse Rate 126 H Respiratory Rate 22 Blood Pressure 117/60 120/64 Pulse Oximetry 100 Oxygen Delivery Method 05/19/25 10:15 05/19/25 10:30 05/19/25 10:30 Temperature Pulse Rate 106 H 94 H Respiratory Rate 11 L 15 Blood Pressure 110/63 Pulse Oximetry 100 96 Oxygen Delivery Method 05/19/25 10:45 05/19/25 10:45 05/19/25 10:58 Temperature Pulse Rate 96 H Respiratory Rate 19 Blood Pressure 97/60 91/61 Pulse Oximetry 96 Oxygen Delivery Method 05/19/25 10:58 05/19/25 11:00 05/19/25 11:00 Temperature Pulse Rate 95 H 110 H Respiratory Rate 26 H 19 Blood Pressure 106/66 Pulse Oximetry 95 Oxygen Delivery Method 05/19/25 11:15 05/19/25 11:15 Temperature Pulse Rate 100 H Respiratory Rate 12 Blood Pressure 91/62 Pulse Oximetry 94 Oxygen Delivery Method MDM - Nausea/Vomiting/Diarrhea Lab Data 05/19/25 09:07 05/19/25 09:07 Labs: Lab Results 05/19/25 Range/Units 09:07 WBC 8.7 (4.5-11.0) X10^3/uL RBC 5.01 (4.5-5.9) X10^6/uL Hgb 15.9 (13.5-17.5) g/dL Hct 45.4 (41-53) % MCV 90.7 (80-100) fL MCH 31.7 (26-34) PG MCHC 34.9 (30-36) % RDW 13.1 (11.6-14.8) % Plt Count 184 (150-400) X10^3/uL Neut % (Auto) 86.5 H (50-75) % Lymph % (Auto) 7.6 L (25-40) % Lyon % (Auto) 5.1 (3-14) % Eos % (Auto) 0.2 L (2-4) % Baso % (Auto) 0.6 (0-2) % Neut # (Auto) 7500 H (0117-5564) /uL Lymph # (Auto) 700 L (1817-3088) /uL Lyon # (Auto) 400 (0-900) /uL Eos # (Auto) 0 (0-450) /uL Baso # (Auto) 0 (0-100) /uL PT 14.7 H (9.4-12.5) SECONDS INR 1.3 (0.9-1.3) APTT 24 L (25.1-36.5) SECONDS Sodium 140 (137-145) mmol/L Potassium 4.0 (3.4-5.1) mmol/L Chloride 102 (98-107) mmol/L Carbon Dioxide 19 L (22-32) mmol/L BUN 18 (9-20) mg/dL Creatinine 1.28 H (0.66-1.25) mg/dL Estimated GFR 58 L (>60) mL/min BUN/Creatinine Ratio 14.1 (6-22) Glucose 123 H (70-99) mg/dL Lactate 1.6 (0.7-2.1) mmol/L Calcium 9.4 (8.4-10.2) mg/dL Total Bilirubin 1.1 (0.2-1.3) mg/dL AST 35 (17-59) IU/L ALT 22 (<50) IU/L Alkaline Phosphatase 56 (38-126) U/L Troponin I < 0.012 (0.01-0.034) ng/mL NT-Pro-B Natriuret Pep 408 (<450) pg/mL Total Protein 8.2 (6.3-8.2) g/dL Albumin 4.8 (3.5-5.0) g/dL Globulin 3.4 (1.7-4.1) g/dL Albumin/Globulin Ratio 1.4 (1.0-2.8) Procalcitonin 0.095 (<0.5) ng/mL [facility] Narrative Medical decision making narrative: EKG shows AFib with RVR rate of 127 QRS of 102 QTC of 479, no acute ST elevation appreciated, left axis deviation. Repeat EKG shows atrial fibrillation rate controlled at 96 QRS is 84 QTC is [address] changes appreciated Labs labs show white count 8.7 hemoglobin of 15 platelets of 184, patient's creatinine is 1.28 was 1.23 on 05/16/2025 BUN is 18 CO2 is 19 with a potassium of 4, lactate 1.6 LFTs are normal troponins less than 0.012 with a BNP of 408, procalcitonin 0.095 Chest x-ray shows patchy bibasilar atelectasis. CT abdomen pelvis patient has not improved acute sigmoid diverticulitis still present, underlying moderate severe diverticulosis, prostatomegaly. Patient received fluids, continued to be tachycardic in atrial fibrillation received metoprolol. After metoprolol patient's rate improved but it is still in atrial fibrillation has not having any persistent vomiting but with his AFib RVR, diverticulitis unable to tolerate his oral antibiotics spoke with Dr. Martinez, hospitalist who accepts for observation. Discharge Plan Departure Patient Disposition: Admitted as Observation Clinical Impression: Atrial fibrillation with rapid ventricular response, Diverticulitis Admit Date/Time: 05/19/25 11:59 Admit Provider: Aleksandr Martinez
[2025-05-19] MEDS: SODIUM CHLORIDE 0.9% 1,000 ML 1000 ML IV (09:20)
[2025-05-19] MEDS: ONDANSETRON 4 MG/2 ML INJ IV (09:20)
[2025-05-19 09:27] LABS: Add Manual Diff / Slide Review NO; Hematocrit 45.4 % (41-53); Hemoglobin 15.9 g/dL (13.5-17.5); Lymphocytes Absolute Auto 700 /uL (1100-4500); Mean Corpuscular HGB Conc 34.9 % (30-36); Mean Corpuscular Hemoglobin 31.7 PG (26-34); Mean Corpuscular Volume 90.7 fL (80-100); Platelet Count 184 X10^3/uL (150-400)
--- NOTE | 2025-05-19 09:32 | PC.NURSE ---
Pt states he has been dealing with N/V/D and leg pain since being DC'd from the ED on friday. States it may be from the new meds rx for him for his infection.
[2025-05-19 09:36] LABS: INR 1.3 (0.9-1.3); Prothrombin Time 14.7 SECONDS (9.4-12.5)
[2025-05-19 09:39] LABS: Alanine Aminotransferase 22 IU/L (<50); Albumin 4.8 g/dL (3.5-5.0); Albumin Globulin Ratio 1.4 (1.0-2.8); Alkaline Phosphatase 56 U/L (38-126); Blood Urea Nitrogen 18 mg/dL (9-20); Calcium 9.4 mg/dL (8.4-10.2); Carbon Dioxide 19 mmol/L (22-32); Chloride 102 mmol/L (98-107); Estimated Glomerular Filt Rate 58 mL/min (>60); Globulin 3.4 g/dL (1.7-4.1); Glucose 123 mg/dL (70-99); HEMOLYSIS 31 (0-50); Lactate (Lactic Acid) 1.6 mmol/L (0.7-2.1); PTT Partial Thromboplastin Tim 24 SECONDS (25.1-36.5); Potassium 4.0 mmol/L (3.4-5.1); Sodium 140 mmol/L (137-145); Total Protein 8.2 g/dL (6.3-8.2)
[2025-05-19 09:48] LABS: NT-proBNP (BNP-Adult 18+) 408 pg/mL (<450)
[2025-05-19 09:52] LABS: Troponin I < 0.012 ng/mL (0.01-0.034)
[2025-05-19 09:56] LABS: Procalcitonin 0.095 ng/mL (<0.5)
--- NOTE | 2025-05-19 10:00 | PC.NURSE ---
Pt reports nausea has subsided
[2025-05-19] MEDS: METOPROLOL TARTRATE 5 MG/5 ML INJ IV ×3 (10:09→21:45)
--- NOTE | 2025-05-19 11:33 | EKG_ITS ---
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
[2025-05-19] MEDS: PANTOPRAZOLE 40 MG VIAL IV ×2 (11:50→21:46)
[2025-05-19] MEDS: PIPERACILLIN/TAZO 4.5 GM in SODIUM CHLORIDE 0.9% 100 ML IV (11:50)
--- NOTE | 2025-05-19 12:40 | PM.HP.1 ---
History of Present Illness <Aleksandr Martinez MD - Last Filed: 05/19/25 17:48> History of Present Illness Chief complaint: Reaction to the antibiotics from ER visit 4 days Narrative: CC: Antibiotic reaction, N/V/D HPI:?? 75-year-old male with a history of benign prostatic hyperplasia, dyslipidemia, and atrial fibrillation (on metoprolol, not anticoagulated), recently treated for acute sigmoid diverticulitis with ciprofloxacin and metronidazole who presented to the ED with persistent left lower quadrant abdominal pain, muscle aches, nausea, vomiting, and new-onset diarrhea. On 05/13, the patient developed LLQ abdominal pain consistent with prior episodes of diverticulitis and was unable to tolerate oral intake. On 05/16, he first presented to the ED with fatigue, abdominal pain, and worsening reflux pain exacerbated by deep inspiration. He was started on ciprofloxacin and metronidazole for presumed diverticulitis and/or UTI (urine culture was negative). Within 12?24 hours of starting antibiotics, he developed burning pain in both legs, severe nausea, and intermittent hiccups. On 05/18, he began having bilious vomiting, and this morning developed non-bloody diarrhea. He reports that zofran administered in the ED provided only short relief. Sleep has been poor, with only hour-long stretches. He denies dysuria today. Abdominal pain has improved and is now only present with deep palpation. In the ED, he was noted to have rapid afib and hasn't been able to hold down his metoprolol for likely several days. ? PMH:? Ulcerative colitis Paroxysmal atrial fibrillation (~2013) BPH (benign prostatic hyperplasia) Hyperlipidemia Hypertension Cervical spondylosis Cervical stenosis of spinal canal ? Surgical Hx:? Inguinal hernia repair bilateral x2, at 16 and 28 ? Medications:? Metoprolol Finasteride CoQ-10 Fish oil Probiotic Apple cider vinegar Multivitamin Red yeast rice Turmeric ? Allergies: NKDA ? Social Hx:? 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 Alcohol: Never Other substances: Never ? Family Hx:?? Mother: Hypertension Father: , ESRD (end stage renal disease) ? ROS: negative other than as noted in HPI ? Labs reviewed and notable for: Blood culture pending. CBC: WNL Coag: high PT (14.7), low PTT (24) CMP: low CO2 (19), high creatinine (1.28), low eGFR (58), high glucose (123), otherwise WNL Troponin WNL BNP WNL Procal WNL ? Imaging/EC/13 CT Abdomen/Pelvis Impression: 1. Improved acute sigmoid diverticulitis, still present. 2. Underlying moderately severe diverticulosis. 3. Prostatomegaly.? ? 05/19 CXR Impression: Patchy bibasilar atelectasis. ? 05/19 08:58 ECG: Intervals [place]? Rate: 127 P:? MO: QRS: -30 QRSD: 102 T: 27 QT: 330? QTc: 479? Interpretive Statements Atrial fibrillation with rapid ventricular response Left axis deviation ? 05/19 11:33 ECG: Intervals [place]? Rate: 96 P:? MO: QRS: -45 QRSD: 84 T: 28 QT: 340? QTc: 429? Interpretive Statements Atrial fibrillation Left axis deviation Inferior infarct, age undetermined Anterior infarct, age undetermined ? Vitals since admission reviewed and notable for: HR: 98-118, elevated x4 ? Physical Exam: GEN: Alert and oriented X4. No acute distress. Well-nourished. Fluent speech. EYES: PERRLA, EOMI. HENT: Moist mucus membranes, no conjunctival injection or icterus, normal neck ROM. RESP: Unlabored breathing, clear to auscultation bilaterally, no cyanosis appreciated. CV: No peripheral edema, Irregularly irregular rhythm with normal rate without murmurs or gallops. ABD: Soft, non-distended, no palpable masses. Tenderness to deep palpation of LLQ. EXT: No edema, clubbing or cyanosis. SKIN: No rashes or lesions. Well healing bruise and abrasion on left upper arm. NEURO: No focal neurologic deficits, CN II-XII grossly intact. PSYCH: Cooperative, appropriate mood and affect. ? A/P:? 75-year-old male with a history of benign prostatic hyperplasia, dyslipidemia, hypertension, and atrial fibrillation (on metoprolol, not anticoagulated), recently treated for acute sigmoid diverticulitis with ciprofloxacin and metronidazole. He presents with persistent left lower quadrant abdominal pain and nausea, and new-onset muscle aches, vomiting, and diarrhea. Laboratory evaluation reveals mild acute kidney injury (Cr 1.28, eGFR 58), low CO?, and otherwise unremarkable CBC and procalcitonin. Imaging shows improved but persistent diverticulitis without abscess or perforation. He is hemodynamically stable, afebrile, and without peritoneal signs. ECG shows atrial fibrillation with variable ventricular response. ? #Atrial Fibrillation with Rapid Ventricular Response Patient presented with heart rate of 127 bpm, improved to 96 bpm after metoprolol administration. His symptoms of dizziness and malaise are consistent with poor rate control. -Continuous telemetry -IV metoprolol while N/V/D -Resume PO metoprolol once tolerating oral intake -Consider initiation of anticoagulation -Follow up with decorating supervisor for cardiac event monitor to investigate frequency of afib ? #Gastrointestinal Symptoms Patient experiencing nausea, vomiting, and diarrhea since starting ciprofloxacin and metronidazole. Gastrointestinal side effects are common and include nausea, vomiting, metallic taste, anorexia, and diarrhea. In studies, 64% of patients reported at least one metronidazole adverse event, including 47% who reported gastrointestinal symptoms with nausea and/or vomiting, abdominal pain, or diarrhea mostly within 3 days of starting treatment and resolving within 5 days of onset. -Supportive care with fluid replacement -BMP daily -Consider C. diff stool testing if diarrhea persists or worsens ? #Acute Kidney Injury Creatinine elevated at 1.28 with eGFR 58, representing decline from baseline. Acute kidney injury is common in elderly patients and can be precipitated by dehydration from gastrointestinal losses. -CK to rule out rhabdomyolysis (prior burning leg pain) -BMP daily ? #Diverticulitis CT shows improved but persistent acute sigmoid diverticulitis. Patient had been completing antibiotic course with ciprofloxacin and metronidazole, last dose 05/19. -Follow-up CT if symptoms worsen -Continue Zosyn given adverse effects of ciprofloxacin and metronidazole -Metoclopramide for nausea control -Pantoprazole for heartburn control -Acetaminophen PRN for pain management -Clear liquid diet advancing as tolerated -Recommend outpatient colonoscopy ? #Benign Prostatic Hyperplasia Patient with known BPH, recently discontinued silodosin due to orthostatic hypotension. -Continue finasteride as prescribed ? #Hyperlipidemia -Hold red rice yeast extract until discharge ? #Hypertension -IV metoprolol while N/V/D -Resume PO metoprolol once tolerating oral intake ? DVT Prophylaxis: -SCDs ? Code Status: -Full Code ? Disposition: Expect 1-2 nights depending on toleration of oral intake Agree with contents of note (AJ) <Anna Risdon - Last Filed: 05/19/25 16:23> History of Present Illness Narrative: CC: Antibiotic reaction, N/V/D HPI:?? 75-year-old male with a history of benign prostatic hyperplasia, dyslipidemia, and atrial fibrillation (on metoprolol, not anticoagulated), recently treated for acute sigmoid diverticulitis with ciprofloxacin and metronidazole who presented to the ED with persistent left lower quadrant abdominal pain, muscle aches, nausea, vomiting, and new-onset diarrhea. On 05/13, the patient developed LLQ abdominal pain consistent with prior episodes of diverticulitis and was unable to tolerate oral intake. On 05/16, he first presented to the ED with fatigue, abdominal pain, and worsening reflux pain exacerbated by deep inspiration. He was started on ciprofloxacin and metronidazole for presumed diverticulitis and/or UTI (urine culture was negative). Within 12?24 hours of starting antibiotics, he developed burning pain in both legs, severe nausea, and intermittent hiccups. On 05/18, he began having bilious vomiting, and this morning developed non-bloody diarrhea. He reports that zofran administered in the ED provided only short relief. Sleep has been poor, with only hour-long stretches. He denies dysuria today. Abdominal pain has improved and is now only present with deep palpation. In the ED, he was noted to have rapid afib and hasn't been able to hold down his metoprolol for likely several days. ? PMH:? Ulcerative colitis Paroxysmal atrial fibrillation (~2013) BPH (benign prostatic hyperplasia) Hyperlipidemia Hypertension Cervical spondylosis Cervical stenosis of spinal canal ? Surgical Hx:? Inguinal hernia repair bilateral x2, at 16 and 28 ? Medications:? Metoprolol Finasteride CoQ-10 Fish oil Probiotic Apple cider vinegar Multivitamin Red yeast rice Turmeric ? Allergies: NKDA ? Social Hx:? 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 Alcohol: Never Other substances: Never ? Family Hx:?? Mother: Hypertension Father: , ESRD (end stage renal disease) ? ROS: negative other than as noted in HPI ? Labs reviewed and notable for: Blood culture pending. CBC: WNL Coag: high PT (14.7), low PTT (24) CMP: low CO2 (19), high creatinine (1.28), low eGFR (58), high glucose (123), otherwise WNL Troponin WNL BNP WNL Procal WNL ? Imaging/EC/13 CT Abdomen/Pelvis Impression: 1. Improved acute sigmoid diverticulitis, still present. 2. Underlying moderately severe diverticulosis. 3. Prostatomegaly.? ? 05/19 CXR Impression: Patchy bibasilar atelectasis. ? 05/19 08:58 ECG: Intervals [place]? Rate: 127 P:? MO: QRS: -30 QRSD: 102 T: 27 QT: 330? QTc: 479? Interpretive Statements Atrial fibrillation with rapid ventricular response Left axis deviation ? 05/19 11:33 ECG: Intervals [place]? Rate: 96 P:? MO: QRS: -45 QRSD: 84 T: 28 QT: 340? QTc: 429? Interpretive Statements Atrial fibrillation Left axis deviation Inferior infarct, age undetermined Anterior infarct, age undetermined ? Vitals since admission reviewed and notable for: HR: 98-118, elevated x4 ? Physical Exam: GEN: Alert and oriented X4. No acute distress. Well-nourished. Fluent speech. EYES: PERRLA, EOMI. HENT: Moist mucus membranes, no conjunctival injection or icterus, normal neck ROM. RESP: Unlabored breathing, clear to auscultation bilaterally, no cyanosis appreciated. CV: No peripheral edema, Irregularly irregular rhythm with normal rate without murmurs or gallops. ABD: Soft, non-distended, no palpable masses. Tenderness to deep palpation of LLQ. EXT: No edema, clubbing or cyanosis. SKIN: No rashes or lesions. Well healing bruise and abrasion on left upper arm. NEURO: No focal neurologic deficits, CN II-XII grossly intact. PSYCH: Cooperative, appropriate mood and affect. ? A/P:? 75-year-old male with a history of benign prostatic hyperplasia, dyslipidemia, hypertension, and atrial fibrillation (on metoprolol, not anticoagulated), recently treated for acute sigmoid diverticulitis with ciprofloxacin and metronidazole. He presents with persistent left lower quadrant abdominal pain and nausea, and new-onset muscle aches, vomiting, and diarrhea. Laboratory evaluation reveals mild acute kidney injury (Cr 1.28, eGFR 58), low CO?, and otherwise unremarkable CBC and procalcitonin. Imaging shows improved but persistent diverticulitis without abscess or perforation. He is hemodynamically stable, afebrile, and without peritoneal signs. ECG shows atrial fibrillation with variable ventricular response. ? #Atrial Fibrillation with Rapid Ventricular Response Patient presented with heart rate of 127 bpm, improved to 96 bpm after metoprolol administration. His symptoms of dizziness and malaise are consistent with poor rate control. -Continuous telemetry -IV metoprolol while N/V/D -Resume PO metoprolol once tolerating oral intake -Consider initiation of anticoagulation -Follow up with decorating supervisor for cardiac event monitor to investigate frequency of afib ? #Gastrointestinal Symptoms Patient experiencing nausea, vomiting, and diarrhea since starting ciprofloxacin and metronidazole. Gastrointestinal side effects are common and include nausea, vomiting, metallic taste, anorexia, and diarrhea. In studies, 64% of patients reported at least one metronidazole adverse event, including 47% who reported gastrointestinal symptoms with nausea and/or vomiting, abdominal pain, or diarrhea mostly within 3 days of starting treatment and resolving within 5 days of onset. -Supportive care with fluid replacement -BMP daily -Consider C. diff stool testing if diarrhea persists or worsens ? #Acute Kidney Injury Creatinine elevated at 1.28 with eGFR 58, representing decline from baseline. Acute kidney injury is common in elderly patients and can be precipitated by dehydration from gastrointestinal losses. -CK to rule out rhabdomyolysis (prior burning leg pain) -BMP daily ? #Diverticulitis CT shows improved but persistent acute sigmoid diverticulitis. Patient had been completing antibiotic course with ciprofloxacin and metronidazole, last dose 05/19. -Follow-up CT if symptoms worsen -Continue Zosyn given adverse effects of ciprofloxacin and metronidazole -Metoclopramide for nausea control -Pantoprazole for heartburn control -Acetaminophen PRN for pain management -Clear liquid diet advancing as tolerated -Recommend outpatient colonoscopy ? #Benign Prostatic Hyperplasia Patient with known BPH, recently discontinued silodosin due to orthostatic hypotension. -Continue finasteride as prescribed ? #Hyperlipidemia -Hold red rice yeast extract until discharge ? #Hypertension -IV metoprolol while N/V/D -Resume PO metoprolol once tolerating oral intake ? DVT Prophylaxis: -SCDs ? Code Status: -Full Code ? Disposition: Expect 1-2 nights depending on toleration of oral intake PFSH <Aleksandr Martinez MD - Last Filed: 05/19/25 17:48> Medical History Ulcerative colitis PAF (paroxysmal atrial fibrillation) (~2013) BPH (benign prostatic hyperplasia) Hyperlipidemia Hypertension Cervical spondylosis Cervical stenosis of spinal canal Surgical History History of inguinal hernia repair Family History Mother Hypertension Father ESRD (end stage renal disease) Social History household members: spouse Smoking Status: Never smoker alcohol intake: former Meds <Aleksandr Martinez MD - Last Filed: 05/19/25 17:48> Home Medications and Allergies Home Medications ?Medication ?Instructions ?Recorded ?Confirmed ?Type metoprolol tartrate 25 mg tablet 12.5 mg PO BID 90 days 06/19/18 05/19/25 History CoQ-10 1 cap PO DAILY 04/30/19 05/19/25 History Fish Oil 1 cap PO DAILY 04/30/19 05/19/25 History Probiotic 1 cap PO DAILY 04/30/19 05/19/25 History apple cider vinegar 1 cap PO DAILY 04/30/19 05/19/25 History finasteride 5 mg tablet 5 mg PO DAILY 04/30/19 05/19/25 History multivitamin 1 tab PO DAILY 04/30/19 05/19/25 History red yeast rice 1 cap PO DAILY 04/30/19 05/19/25 History turmeric 2 tab PO QPM 04/30/19 05/19/25 History ondansetron HCl 4 mg tablet 4 mg PO Q6H PRN nausea and 05/01/19 05/19/25 Rx (Zofran) vomiting #20 tabs Allergies Allergy/AdvReac Type Severity Reaction Status Date / Time No Known Allergies Allergy Verified 05/16/25 11:51 Exam <Aleksandr Martinez MD - Last Filed: 05/19/25 17:48> Vital Signs (past 8 hours): - 05/19/25 08:52 05/19/25 09:47 05/19/25 09:48 Temperature 97.5 F L Pulse Rate 132 H 134 H Respiratory Rate 18 19 Blood Pressure 126/62 135/65 Pulse Oximetry 96 94 Oxygen Delivery Method Room Air 05/19/25 09:48 05/19/25 10:00 05/19/25 10:00 Temperature Pulse Rate 130 H 127 H Respiratory Rate 18 17 Blood Pressure 112/76 Pulse Oximetry 94 99 Oxygen Delivery Method 05/19/25 10:08 05/19/25 10:08 05/19/25 10:15 Temperature Pulse Rate 126 H Respiratory Rate 22 Blood Pressure 117/60 120/64 Pulse Oximetry 100 Oxygen Delivery Method 05/19/25 10:15 05/19/25 10:30 05/19/25 10:30 Temperature Pulse Rate 106 H 94 H Respiratory Rate 11 L 15 Blood Pressure 110/63 Pulse Oximetry 100 96 Oxygen Delivery Method 05/19/25 10:45 05/19/25 10:45 05/19/25 10:58 Temperature Pulse Rate 96 H Respiratory Rate 19 Blood Pressure 97/60 91/61 Pulse Oximetry 96 Oxygen Delivery Method 05/19/25 10:58 05/19/25 11:00 05/19/25 11:00 Temperature Pulse Rate 95 H 110 H Respiratory Rate 26 H 19 Blood Pressure 106/66 Pulse Oximetry 95 Oxygen Delivery Method 05/19/25 11:15 05/19/25 11:15 05/19/25 11:30 Temperature Pulse Rate 100 H Respiratory Rate 12 Blood Pressure 91/62 102/65 Pulse Oximetry 94 Oxygen Delivery Method 05/19/25 11:30 05/19/25 11:45 05/19/25 11:45 Temperature Pulse Rate 98 H 100 H Respiratory Rate 17 14 Blood Pressure 110/71 Pulse Oximetry 94 95 Oxygen Delivery Method 05/19/25 12:00 05/19/25 12:00 05/19/25 12:15 Temperature Pulse Rate 118 H Respiratory Rate 15 Blood Pressure 114/80 101/62 Pulse Oximetry 94 Oxygen Delivery Method 05/19/25 12:15 Temperature Pulse Rate 116 H Respiratory Rate 21 Blood Pressure Pulse Oximetry 94 Oxygen Delivery Method Oxygen Delivery Method Room Air Objective <Aleksandr Martinez MD - Last Filed: 05/19/25 17:48> Labs 05/19/25 09:07 05/19/25 09:07 Labs: Laboratory Results - last 24 hr 05/19/25 09:07 WBC 8.7 RBC 5.01 Hgb 15.9 Hct 45.4 MCV 90.7 MCH 31.7 MCHC 34.9 RDW 13.1 Plt Count 184 Neut % (Auto) 86.5 H Lymph % (Auto) 7.6 L Story % (Auto) 5.1 Eos % (Auto) 0.2 L Baso % (Auto) 0.6 Neut # (Auto) 7500 H Lymph # (Auto) 700 L Story # (Auto) 400 Eos # (Auto) 0 Baso # (Auto) 0 PT 14.7 H INR 1.3 APTT 24 L Sodium 140 Potassium 4.0 Chloride 102 Carbon Dioxide 19 L BUN 18 Creatinine 1.28 H Estimated GFR 58 L BUN/Creatinine Ratio 14.1 Glucose 123 H Lactate 1.6 Calcium 9.4 Total Bilirubin 1.1 AST 35 ALT 22 Alkaline Phosphatase 56 Troponin I < 0.012 NT-Pro-B Natriuret Pep 408 Total Protein 8.2 Albumin 4.8 Globulin 3.4 Albumin/Globulin Ratio 1.4 Procalcitonin 0.095 Assessment & Plan <Aleksandr Martinez MD - Last Filed: 05/19/25 17:48> Time-Based Coding :: 35 min spent with patient and on the chart (including review of chart, obtaining history, exam, reviewing outside data, placing orders, documenting exam and treatment plan, and counseling patient) on 05/19. Quality <Aleksandr Martinez MD - Last Filed: 05/19/25 17:48> MIPS - Admit I confirm the patient?s Advance Care Plan is present, Code status is documented, Surrogate decision maker is in patient?s record [If Yes, STOP here]: Yes MIPS - Meds 'Current medications' to include all prescriptions, [id number] products, herbals, cannabis/cannabidiol products, and vitamin/mineral/dietary (nutritional) supplements. I have utilized all available resources to obtain, update, or review the patient?s current medications. [If Yes, STOP here]: Yes
[2025-05-19] MEDS: PIPERACILLIN/TAZO 3.375 GM in SODIUM CHLORIDE 0.9% 100 ML IV (16:05)
[2025-05-19] MEDS: DEXTROSE 5%-0.9% NS 1,000 ML 100 ML IV (16:06)
[2025-05-19 16:42] LABS: Creatine Kinase 85 U/L (55-170)
[2025-05-19] MEDS: METOCLOPRAMIDE 10 MG/2 ML INJ 5 MG IV (16:51)
[2025-05-20] MEDS: PIPERACILLIN/TAZO 3.375 GM in SODIUM CHLORIDE 0.9% 100 ML IV ×2 (00:06→09:13)
[2025-05-20 00:07] VITALS: BP 122/80; PULSE 63; RESP 16; TEMP 36.5; O2SAT 95
[2025-05-20] MEDS: DEXTROSE 5%-0.9% NS 1,000 ML 100 ML IV (01:55)
[2025-05-20 04:16] VITALS: BP 111/54; PULSE 64; RESP 16; TEMP 36.6; O2SAT 95
[2025-05-20] MEDS: METOPROLOL TARTRATE 5 MG/5 ML INJ IV ×2 (04:18→09:12)
[2025-05-20 05:11] LABS: Add Manual Diff / Slide Review NO; Hematocrit 37.6 % (41-53); Hemoglobin 13.2 g/dL (13.5-17.5); Lymphocytes Absolute Auto 1100 /uL (1100-4500); Mean Corpuscular HGB Conc 35.0 % (30-36); Mean Corpuscular Hemoglobin 31.5 PG (26-34); Mean Corpuscular Volume 89.9 fL (80-100); Platelet Count 157 X10^3/uL (150-400)
[2025-05-20 05:32] LABS: Blood Urea Nitrogen 16 mg/dL (9-20); Calcium 8.4 mg/dL (8.4-10.2); Carbon Dioxide 22 mmol/L (22-32); Chloride 109 mmol/L (98-107); Estimated Glomerular Filt Rate > 60 mL/min (>60); Glucose 117 mg/dL (70-99); HEMOLYSIS < 15 (0-50); Potassium 3.5 mmol/L (3.4-5.1); Sodium 139 mmol/L (137-145)
[2025-05-20] MEDS: PANTOPRAZOLE 40 MG VIAL IV (09:12)
[2025-05-20] MEDS: FINASTERIDE 5 MG TABLET PO (09:12)
--- NOTE | 2025-05-20 10:47 | P.DS_ITS ---
History of Present Illness <Anna Oviedo - Last Filed: 05/20/25 10:53> History of Present Illness Chief complaint: Reaction to the antibiotics from ER visit 4 days Narrative: CC: Antibiotic reaction, N/V/D HPI:?? 75-year-old male with a history of benign prostatic hyperplasia, dyslipidemia, and atrial fibrillation (on metoprolol, not anticoagulated), recently treated for acute sigmoid diverticulitis with ciprofloxacin and metronidazole who presented to the ED with persistent left lower quadrant abdominal pain, muscle aches, nausea, vomiting, and new-onset diarrhea. On 05/13, the patient developed LLQ abdominal pain consistent with prior episodes of diverticulitis and was unable to tolerate oral intake. On 05/16, he first presented to the ED with fatigue, abdominal pain, and worsening reflux pain exacerbated by deep inspiration. He was started on ciprofloxacin and metronidazole for presumed diverticulitis and/or UTI (urine culture was negative). Within 12?24 hours of starting antibiotics, he developed burning pain in both legs, severe nausea, and intermittent hiccups. On 05/18, he began having bilious vomiting, and this morning developed non-bloody diarrhea. He reports that zofran administered in the ED provided only short relief. Sleep has been poor, with only hour-long stretches. He denies dysuria today. Abdominal pain has improved and is now only present with deep palpation. In the ED, he was noted to have rapid afib and hasn't been able to hold down his metoprolol for likely several days. ? PMH:? Ulcerative colitis Paroxysmal atrial fibrillation (~2013) BPH (benign prostatic hyperplasia) Hyperlipidemia Hypertension Cervical spondylosis Cervical stenosis of spinal canal ? Surgical Hx:? Inguinal hernia repair bilateral x2, at 16 and 28 ? Medications:? Metoprolol Finasteride CoQ-10 Fish oil Probiotic Apple cider vinegar Multivitamin Red yeast rice Turmeric ? Allergies: NKDA ? Social Hx:? 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 Alcohol: Never Other substances: Never ? Family Hx:?? Mother: Hypertension Father: , ESRD (end stage renal disease) ? ROS: negative other than as noted in HPI ? Labs reviewed and notable for: Blood culture pending. CBC: WNL Coag: high PT (14.7), low PTT (24) CMP: low CO2 (19), high creatinine (1.28), low eGFR (58), high glucose (123), otherwise WNL Troponin WNL BNP WNL Procal WNL ? Imaging/EC/13 CT Abdomen/Pelvis Impression: 1. Improved acute sigmoid diverticulitis, still present. 2. Underlying moderately severe diverticulosis. 3. Prostatomegaly.? ? 05/19 CXR Impression: Patchy bibasilar atelectasis. ? 05/19 08:58 ECG: Intervals [place]? Rate: 127 P:? [place]: QRS: -30 QRSD: 102 T: 27 QT: 330? QTc: 479? Interpretive Statements Atrial fibrillation with rapid ventricular response Left axis deviation ? 05/19 11:33 ECG: Intervals [place]? Rate: 96 P:? [place]: QRS: -45 QRSD: 84 T: 28 QT: 340? QTc: 429? Interpretive Statements Atrial fibrillation Left axis deviation Inferior infarct, age undetermined Anterior infarct, age undetermined ? Vitals since admission reviewed and notable for: HR: 98-118, elevated x4 ? Physical Exam: GEN: Alert and oriented X4. No acute distress. Well-nourished. Fluent speech. EYES: PERRLA, EOMI. HENT: Moist mucus membranes, no conjunctival injection or icterus, normal neck ROM. RESP: Unlabored breathing, clear to auscultation bilaterally, no cyanosis appreciated. CV: No peripheral edema, Irregularly irregular rhythm with normal rate without murmurs or gallops. ABD: Soft, non-distended, no palpable masses. Tenderness to deep palpation of LLQ. EXT: No edema, clubbing or cyanosis. SKIN: No rashes or lesions. Well healing bruise and abrasion on left upper arm. NEURO: No focal neurologic deficits, CN II-XII grossly intact. PSYCH: Cooperative, appropriate mood and affect. ? Interval Events: 05/20 (Dr. Martinez): He is much improved today. Nausea, heartburn, and pain have all resolved. He ate a full breakfast this morning with no issue and is tolerating liquids well. No new symptoms. ? Labs reviewed and notable for: Blood culture pending. CBC: low RBC (4.18), Hgb 13.2), Hct (37.6), normal WBC (4.9) CMP: high chloride (109), high glucose (117), otherwise WNL Normal CK (85) ? Imaging/ECG: No new imaging. ? Intake/Output: In 2582, Out 675, Urine 0.32ml/kg/hr, Stool x0, Emesis x0. Balance +1907 ? Vitals reviewed and notable for: Temp: 100.1 F resolved to 99.6 F within 6 minutes and then 97.9 F within three hours BP: 104-122/54-80, 2x low diastolic Other vitals WNL ? Physical Exam: GEN: Alert and oriented X4. No acute distress. Well-nourished. Fluent speech. RESP: Unlabored breathing, clear to auscultation bilaterally, no cyanosis appreciated.. CV: No peripheral edema, regular rhythm and rate without murmurs or gallops. ABD: Soft, non-distended, no palpable masses. No tenderness to palpation. EXT: No edema, clubbing or cyanosis. SKIN: No rashes or lesions. Well healing bruise and abrasion on left upper arm. NEURO: No focal neurologic deficits, CN II-XII grossly intact. PSYCH: Cooperative, appropriate mood and affect. ? A/P: 75-year-old male with a history of benign prostatic hyperplasia, dyslipidemia, hypertension, and atrial fibrillation (on metoprolol, not anticoagulated), recently treated for acute sigmoid diverticulitis with ciprofloxacin and metronidazole. He presents with persistent left lower quadrant abdominal pain and nausea, and new-onset muscle aches, vomiting, and diarrhea. Mild acute kidney injury now resolved, a fib rate controlled, GI symptoms improved. He is ready for discharge. ? #Atrial Fibrillation with Rapid Ventricular Response Patient presented with heart rate of 127 bpm, improved to 96 bpm after metoprolol administration. His symptoms of dizziness and malaise are consistent with poor rate control. -Continuous telemetry -Stop IV metoprolol -Resume PO metoprolol? -Start PO apixiban 5mg BID -Follow up with master control technician for cardiac event monitor to investigate frequency of afib ? #Gastrointestinal Symptoms Patient experiencing nausea, vomiting, and diarrhea since starting ciprofloxacin and metronidazole. Gastrointestinal side effects are common and include nausea, vomiting, metallic taste, anorexia, and diarrhea. In studies, 64% of patients reported at least one metronidazole adverse event, including 47% who reported gastrointestinal symptoms with nausea and/or vomiting, abdominal pain, or diarrhea mostly within 3 days of starting treatment and resolving within 5 days of onset. -Supportive care with fluid replacement -BMP daily -Consider C. diff stool testing if diarrhea persists or worsens ? #Acute Kidney Injury, resolved Creatinine elevated at 1.28 with eGFR 58 improved to 0.98 and >60. Acute kidney injury is common in elderly patients and can be precipitated by dehydration from gastrointestinal losses. ? #Diverticulitis CT shows improved but persistent acute sigmoid diverticulitis. Patient had been completing antibiotic course with ciprofloxacin and metronidazole, last dose 05/19. -Follow-up CT if symptoms worsen -S/p Zosyn given adverse effects of ciprofloxacin and metronidazole -Start Augmentin, 5 doses outpatient -Metoclopramide for nausea control -Pantoprazole for heartburn control -Acetaminophen PRN for pain management -Tolerating regular diet -Recommend outpatient colonoscopy ? #Benign Prostatic Hyperplasia Patient with known BPH, recently discontinued silodosin due to orthostatic hypotension. -Continue finasteride as prescribed ? #Hyperlipidemia -Hold red rice yeast extract until discharge ? #Hypertension -Resume PO metoprolol ? DVT Prophylaxis: -SCDs ? Code Status: -Full Code ? Disposition: Tolerating regular diet, discharge home today. <Aleksandr Martinez MD - Last Filed: 05/20/25 12:39> History of Present Illness Narrative: CC: Antibiotic reaction, N/V/D HPI:?? 75-year-old male with a history of benign prostatic hyperplasia, dyslipidemia, and atrial fibrillation (on metoprolol, not anticoagulated), recently treated for acute sigmoid diverticulitis with ciprofloxacin and metronidazole who presented to the ED with persistent left lower quadrant abdominal pain, muscle aches, nausea, vomiting, and new-onset diarrhea. On 05/13, the patient developed LLQ abdominal pain consistent with prior episodes of diverticulitis and was unable to tolerate oral intake. On 05/16, he first presented to the ED with fatigue, abdominal pain, and worsening reflux pain exacerbated by deep inspiration. He was started on ciprofloxacin and metronidazole for presumed diverticulitis and/or UTI (urine culture was negative). Within 12?24 hours of starting antibiotics, he developed burning pain in both legs, severe nausea, and intermittent hiccups. On 05/18, he began having bilious vomiting, and this morning developed non-bloody diarrhea. He reports that zofran administered in the ED provided only short relief. Sleep has been poor, with only hour-long stretches. He denies dysuria today. Abdominal pain has improved and is now only present with deep palpation. In the ED, he was noted to have rapid afib and hasn't been able to hold down his metoprolol for likely several days. ? PMH:? Ulcerative colitis Paroxysmal atrial fibrillation (~2013) BPH (benign prostatic hyperplasia) Hyperlipidemia Hypertension Cervical spondylosis Cervical stenosis of spinal canal ? Surgical Hx:? Inguinal hernia repair bilateral x2, at 16 and 28 ? Medications:? Metoprolol Finasteride CoQ-10 Fish oil Probiotic Apple cider vinegar Multivitamin Red yeast rice Turmeric ? Allergies: NKDA ? Social Hx:? 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 Alcohol: Never Other substances: Never ? Family Hx:?? Mother: Hypertension Father: , ESRD (end stage renal disease) ? ROS: negative other than as noted in HPI ? Labs reviewed and notable for: Blood culture pending. CBC: WNL Coag: high PT (14.7), low PTT (24) CMP: low CO2 (19), high creatinine (1.28), low eGFR (58), high glucose (123), otherwise WNL Troponin WNL BNP WNL Procal WNL ? Imaging/EC/13 CT Abdomen/Pelvis Impression: 1. Improved acute sigmoid diverticulitis, still present. 2. Underlying moderately severe diverticulosis. 3. Prostatomegaly.? ? 05/19 CXR Impression: Patchy bibasilar atelectasis. ? 05/19 08:58 ECG: Intervals [place]? Rate: 127 P:? [place]: QRS: -30 QRSD: 102 T: 27 QT: 330? QTc: 479? Interpretive Statements Atrial fibrillation with rapid ventricular response Left axis deviation ? 05/19 11:33 ECG: Intervals [place]? Rate: 96 P:? [place]: QRS: -45 QRSD: 84 T: 28 QT: 340? QTc: 429? Interpretive Statements Atrial fibrillation Left axis deviation Inferior infarct, age undetermined Anterior infarct, age undetermined ? Vitals since admission reviewed and notable for: HR: 98-118, elevated x4 ? Physical Exam: GEN: Alert and oriented X4. No acute distress. Well-nourished. Fluent speech. EYES: PERRLA, EOMI. HENT: Moist mucus membranes, no conjunctival injection or icterus, normal neck ROM. RESP: Unlabored breathing, clear to auscultation bilaterally, no cyanosis appreciated. CV: No peripheral edema, Irregularly irregular rhythm with normal rate without murmurs or gallops. ABD: Soft, non-distended, no palpable masses. Tenderness to deep palpation of LLQ. EXT: No edema, clubbing or cyanosis. SKIN: No rashes or lesions. Well healing bruise and abrasion on left upper arm. NEURO: No focal neurologic deficits, CN II-XII grossly intact. PSYCH: Cooperative, appropriate mood and affect. ? Interval Events: 05/20 (Dr. Martinez): He is much improved today. Nausea, heartburn, and pain have all resolved. He ate a full breakfast this morning with no issue and is tolerating liquids well. No new symptoms. ? Labs reviewed and notable for: Blood culture pending. CBC: low RBC (4.18), Hgb 13.2), Hct (37.6), normal WBC (4.9) CMP: high chloride (109), high glucose (117), otherwise WNL Normal CK (85) ? Imaging/ECG: No new imaging. ? Intake/Output: In 2582, Out 675, Urine 0.32ml/kg/hr, Stool x0, Emesis x0. Balance +1907 ? Vitals reviewed and notable for: Temp: 100.1 F resolved to 99.6 F within 6 minutes and then 97.9 F within three hours BP: 104-122/54-80, 2x low diastolic Other vitals WNL ? Physical Exam: GEN: Alert and oriented X4. No acute distress. Well-nourished. Fluent speech. RESP: Unlabored breathing, clear to auscultation bilaterally, no cyanosis appreciated.. CV: No peripheral edema, regular rhythm and rate without murmurs or gallops. ABD: Soft, non-distended, no palpable masses. No tenderness to palpation. EXT: No edema, clubbing or cyanosis. SKIN: No rashes or lesions. Well healing bruise and abrasion on left upper arm. NEURO: No focal neurologic deficits, CN II-XII grossly intact. PSYCH: Cooperative, appropriate mood and affect. ? A/P: 75-year-old male with a history of benign prostatic hyperplasia, dyslipidemia, hypertension, and atrial fibrillation (on metoprolol, not anticoagulated), recently treated for acute sigmoid diverticulitis with ciprofloxacin and metronidazole. He presents with persistent left lower quadrant abdominal pain and nausea, and new-onset muscle aches, vomiting, and diarrhea. Mild acute kidney injury now resolved, a fib rate controlled, GI symptoms improved. He is ready for discharge. ? #Atrial Fibrillation with Rapid Ventricular Response Patient presented with heart rate of 127 bpm, improved to 96 bpm after metoprolol administration. His symptoms of dizziness and malaise are consistent with poor rate control. -Continuous telemetry -Stop IV metoprolol -Resume PO metoprolol? -Start PO apixiban 5mg BID -Follow up with master control technician for cardiac event monitor to investigate frequency of afib ? #Gastrointestinal Symptoms Patient experiencing nausea, vomiting, and diarrhea since starting ciprofloxacin and metronidazole. Gastrointestinal side effects are common and include nausea, vomiting, metallic taste, anorexia, and diarrhea. In studies, 64% of patients reported at least one metronidazole adverse event, including 47% who reported gastrointestinal symptoms with nausea and/or vomiting, abdominal pain, or diarrhea mostly within 3 days of starting treatment and resolving within 5 days of onset. -Supportive care with fluid replacement -BMP daily -Consider C. diff stool testing if diarrhea persists or worsens ? #Acute Kidney Injury, resolved Creatinine elevated at 1.28 with eGFR 58 improved to 0.98 and >60. Acute kidney injury is common in elderly patients and can be precipitated by dehydration from gastrointestinal losses. ? #Diverticulitis CT shows improved but persistent acute sigmoid diverticulitis. Patient had been completing antibiotic course with ciprofloxacin and metronidazole, last dose 05/19. -Follow-up CT if symptoms worsen -S/p Zosyn given adverse effects of ciprofloxacin and metronidazole -Start Augmentin, 5 doses outpatient -Metoclopramide for nausea control -Pantoprazole for heartburn control -Acetaminophen PRN for pain management -Tolerating regular diet -Recommend outpatient colonoscopy ? #Benign Prostatic Hyperplasia Patient with known BPH, recently discontinued silodosin due to orthostatic hypotension. -Continue finasteride as prescribed ? #Hyperlipidemia -Hold red rice yeast extract until discharge ? #Hypertension -Resume PO metoprolol ? DVT Prophylaxis: -SCDs ? Code Status: -Full Code ? Disposition: Tolerating regular diet, discharge home today. Additonal info: Symptoms resolved on Zosyn and with antiemetics. He would advance diet and was stable for discharge. He agreed to 5 additional doses of Augmentin as well as initiation of anticoagulation based on his chads Vasc risk of stroke. He will follow up with his PCP in requests referral to Cardiology. [N], the patient has documentation of a left ventricle ejection fracture less than or equal to 40%, or moderately or severely reduced left ventricle systolic function. [N], the patient has a history of heart transplant or left ventricular assist device (LVAD). [N], the patient was prescribed an JOHANA inhibitor at discharge or is already being taken. The patient was not prescribed an JOHANA-inhibitor because of the following exception: NA. [N], the patient was prescribed Metoprolol succinate, bisoprolol, or carvedilol at discharge. The patient was not prescribed Metoprolol succinate, bisoprolol, or carvedilol at discharge because of the following exception: NA Discharge Providers <Anna Oviedo - Last Filed: 05/20/25 10:53> Provider Date of admission: 05/19/25 11:59 Primary care physician: Sofy Whitfield MD Discharge provider: Anna Oviedo <Aleksandr Martinez MD - Last Filed: 05/20/25 12:39> Provider Discharge Date: 05/20/25 Summary <Aleksandr Martinez MD - Last Filed: 05/20/25 12:39> Hospital Course Discharge Diagnosis: Atrial fibrillation Hospital Course: See above. Status at Discharge Cognitive/behavioral status at discharge: oriented Functional status at discharge: independent ambulation Overall status at discharge: patient is back to baseline Time Spent with Patient Time spent: Greater than 30 minutes Exam <Anna Oviedo - Last Filed: 05/20/25 10:53> Vital Signs (past 8 hours): - 05/20/25 04:16 Temperature 97.9 F Pulse Rate 64 Respiratory Rate 16 Blood Pressure 111/54 L Pulse Oximetry 95 Oxygen Delivery Method Room Air Oxygen Flow Rate 0 <Aleksandr Martinez MD - Last Filed: 05/20/25 12:39> Narrative Exam Narrative: NAD, alert and oriented. Fluent speech. Lungs are clear, normal rate and effort. Heart is irregular, no murmur gallop or rub. Abdomen is soft, non distended. Extremities are free of edema. Objective <Anna Oviedo - Last Filed: 05/20/25 10:53> Labs 05/20/25 04:59 05/20/25 04:59 Labs: Laboratory Results - last 24 hr 05/19/25 05/20/25 09:07 04:59 WBC 4.9 RBC 4.18 L Hgb 13.2 L Hct 37.6 L MCV 89.9 MCH 31.5 MCHC 35.0 RDW 13.3 Plt Count 157 Neut % (Auto) 63.7 D Lymph % (Auto) 22.6 L [place] % (Auto) 11.4 Eos % (Auto) 1.6 L Baso % (Auto) 0.7 Neut # (Auto) 3100 Lymph # (Auto) 1100 [place] # (Auto) 600 Eos # (Auto) 100 Baso # (Auto) 0 Sodium 139 Potassium 3.5 Chloride 109 H Carbon Dioxide 22 BUN 16 Creatinine 0.98 Estimated GFR > 60 BUN/Creatinine Ratio 16.3 Glucose 117 H Calcium 8.4 Total Creatine Kinase 85 PFSH <Anna Oviedo - Last Filed: 05/20/25 10:53> Medical History Ulcerative colitis PAF (paroxysmal atrial fibrillation) (~2013) BPH (benign prostatic hyperplasia) Hyperlipidemia Hypertension Cervical spondylosis Cervical stenosis of spinal canal Surgical History History of inguinal hernia repair Family History Mother Hypertension Father ESRD (end stage renal disease) Social History household members: spouse Smoking Status: Never smoker alcohol intake: former Discharge Assessment & Plan <Anna Oviedo - Last Filed: 05/20/25 10:53> Assessment and Plan Plan of Treatment: Plan as above, continue oral antibiotics for 5 additional doses. Initiation of apixaban. Discharge Plan Discharge Plan Patient Disposition: Home Provider Discharge Comment: Stable for discharge home. Discharge orders & Medications Prescriptions: New amoxicillin-pot clavulanate 875-125 mg tablet 1 tab PO BID Qty: 5 0RF apixaban 5 mg tablet 5 mg PO BID Qty: 60 2RF metoclopramide HCl 5 mg tablet 5 mg PO QAC PRN (Reason: nausea and vomiting) Qty: 14 0RF Rx Instructions: administer 30 minutes before meals pantoprazole [Protonix] [address] for susp in packet 40 mg PO DAILY Qty: 30 0RF Continued finasteride 5 mg tablet 5 mg PO DAILY multivitamin Tablet 1 tab PO DAILY CoQ-10 1 cap PO DAILY Fish Oil 1 cap PO DAILY Probiotic 1 cap PO DAILY apple cider vinegar 1 cap PO DAILY red yeast rice 1 cap PO DAILY turmeric 2 tab PO QPM ondansetron HCl [Zofran] 4 mg tablet 4 mg PO Q6H PRN (Reason: nausea and vomiting) Qty: 20 0RF metoprolol tartrate 25 mg tablet 12.5 mg PO BID 90 Days Medication counseling provided by Pharmacist: No Follow up/Referrals: Sofy Whitfield MD [Primary Care Provider, Family Practice] Discharge Health Status Multidrug resistant organism: No MDRO Diet/Activity/Treatments Diet: Diet as Tolerated Visit Report/Discharge Packet Instructions: Atrial Fibrillation, DI for Atrial Fibrillation, DI for Diverticulitis, Apixaban Stand Alone Forms: Patient Portal/API, Stroke Signs & Symptoms Discharge Data Primary Care Provider: Sofy Whitfield Attending Provider: Aleksandr Martinez Admit Date/Time: 05/19/25 11:59 Quality <Anna Oviedo - Last Filed: 05/20/25 10:53> VTE Deep Vein Thrombosis/Pulmonary Embolism Present on Admission: No
--- NOTE | 2025-05-20 11:07 | DIET.CONS ---
Dietary Consultation Note Admission Date: 05/19/2025 11:59 Assessment: 75 y M admitted for af rvr and diverticulitis. Dietitian screened for low MNA score. Met with pt who reports 7 days no PO intakes. Before then normal appetite and meals (intermit. fasting). Unsure UBW, does feel pants have gotten looser in last 7 days, but not significantly so. Reports appetite has returned to normal and has no concerns resuming normal PO intakes. NFPE with no significant results. Ht: 177.8 cm Wt: 86.863 kg BMI: 27.4 UBW: pt unsure, no recent wt hx from EMR Last BM: 05/19/25 (05/19/25 12:37) MNA: 9 [place] Score: 23 Diet: 05/20/25 Breakfast General (Regular) Diet Diet Modifications: Food Texture: Level 7 - Regular Liquid Consistency: Level 0 - Thin Nutrition Percent Meal Consumed 100% 05/20/25 09:04 Percent Meal Consumed 50% 05/19/25 18:34 Labs: RBC 4.18 X10^6/uL (4.5-5.9) L 05/20/25 04:59 Hgb 13.2 g/dL (13.5-17.5) L 05/20/25 04:59 Hct 37.6 % (41-53) L 05/20/25 04:59 Creatinine 0.98 mg/dL (0.66-1.25) 05/20/25 04:59 Lactate 1.6 mmol/L (0.7-2.1) 05/19/25 09:07 NT-Pro-B Natriuret Pep 408 pg/mL (<450) 05/19/25 09:07 Nutrition Diagnosis: (Resolved) Inadequate oral intakes r/t altercations in GI tract aeb diverticulitis with N/V/D and no po intakes for 7 days Interventions: none needed, pt reports normal appetite and no issues resuming normal POs. Discussed avoiding high fibrous foods while in flare ups and then slowly bringing them back into the diet when not in flare up. Monitoring/Evaluations: plan is to d/c today, prn Electronically Signed by: Chloe Barton 05/20/25 11:07 Clinical Dietitian [address] [id number]
--- NOTE | 2025-05-20 11:31 | CM.DANOTE ---
Initial DCP Assessment Visit Note Reviewed EMR and team rounds for pt's medical status and updates. Pt lives independently with his spouse in their own home in [place]. He has been medically cleared for d/c, and his spouse will transport him home early this afternoon. He denies any CM d/c assistance or resource needs at this time. Payor: Medicare PCP: Sofy Whitfield Pt is a 75 year-old M who was just evaluated in the ED on 05/16, was diagnosed with diverticulitis, and was sent home with Cipro and Flagyl antibiotics. Last evening he presented to the ED again with c/o persistent abdominal pain that has not improved since he was last seen, nausea, vomiting, diarrhea, and weakness. He was found to be tachycardic and in Afib w/RVR upon ED arrival. CT abd. confirmed the presence of diverticulitis. He was started on IV fluids, IV antibiotics, and admitted to [facility] for further tx and monitoring. Today, he shared that he feels much improved and is anxious to return home. He will d/c with oral antibiotics, and will f/u with his PCP post-discharge. Discharge Planning/Care Management CM Discharge Assessment Start: 05/19/25 12:12 Freq: Status: Active Protocol: Document 05/20/25 11:29 DPL (Rec: 05/20/25 11:30 DPL [id number]) Discharge Planning Assessment Assigned Discharge MIKE Rice [employer] Assistant Insurance Medicare Advance Directives? No History Provided By Patient,Family Member,Medical Record Has Patient been No admitted in last 30 days? Prior Living House Arrangements Household Members spouse Type of Drives own vehicle transporation used prior to admit Independent with ADL Yes 's Is patient alert and Yes oriented? Caregiver for No Another Comment N/A Comment N/A Comment No identified home d/c needs at this time. Barriers to No Discharge Discharge Plan Home Transportation Spouse Arrangement Referrals Initiated None needed Review Status In Process Please Provide Date 05/20/25 Initial DC Assessment Was Performed
[2025-05-20] MEDS: POTASSIUM CHLORIDE 20 MEQ TAB 40 MEQ PO (12:31)
--- NOTE | 2025-05-20 12:56 | PC.NURSE ---
Day shift: This public relations writer did d/c teachings/ Pt and Pt's spouse very receptive to this. All questions answered and paperwork signed. Waiting for IV antibiotic to finish before they leave.
== END 2025-05-20 13:45 | disposition home or self-care (01) ==
LOC: ED 08:57 → AC 12:00
PROVIDERS: Admitting Provider Hospitalist; Emergency Provider Emergency Medicine; PCP Family Medicine; Referring Provider Emergency Medicine; Visit Provider Hospitalist
DX: I48.91 Unspecified atrial fibrillation (principal); R11.2 Nausea with vomiting, unspecified; R19.7 Diarrhea, unspecified; R10.32 Left lower quadrant pain; N17.9 Acute kidney failure, unspecified; K57.32 Diverticulitis of large intestine without perforation or abscess without bleeding; N40.0 Benign prostatic hyperplasia without lower urinary tract symptoms; T36.8X5A Adverse effect of other systemic antibiotics, initial encounter; E78.5 Hyperlipidemia, unspecified; I10 Essential (primary) hypertension
CPT/HCPCS: 36415; 71045; 74177; 80048; 80053; 82550; 83605; 83880; 84145; 84484; 85025; 85610; 85730; 87040; 93005; 96361; 96365; 96366; 96367; 96368; 96375; 96376; 99284; G0378; J2405; J2470; J2543; J2765; J7030; J7042; J7050; Q9967